=== PATIENT | male | born 1970 | race Two or more races ===

== ENCOUNTER 2016-06-12 12:05 | Inpatient (IN) | payer OTHER ==
[~2016-06-12] VITALS: Ht 172.7 cm; Wt 108.9 kg
[2016-06-12] MEDS ORDERED: IV NORMAL SALINE 1000ML BAG 1,000 ML IV ONE ×2 (13:15)
[2016-06-12 13:23] LABS: BASO # 0.1 x10^3/uL (0.0-0.2); BASO % 0 % (0-3); EOS % 0 % (0-3); HEMATOCRIT 44.3 % (39.0-53.0); HEMOGLOBIN 14.7 g/dL (13.0-17.5); LYMPH # 0.9 x10^3/uL (1.0-4.8); LYMPH % 5 % (24-48); MEAN CORPUSCULAR HEMOGLOBIN 30 pg (25-35); MEAN CORPUSCULAR HGB CONC 33 g/dL (31-37); MEAN CORPUSCULAR VOLUME 91 fL (79-100); MONO % 8 % (0-9); NEUT % 87 % (31-73); PLATELET COUNT 183 x10^3/uL (140-400); RED CELL DISTRIBUTION WIDTH 13.2 % (11.5-14.5); WHITE BLOOD COUNT 18.3 x10^3/uL (4.0-11.0)
--- NOTE | 2016-06-12 13:28 | PHYS DOC ---
Past Medical History Past Medical History: Diabetes-Type II, High Cholesterol, Hypertension, Other Additional Past Medical Histor: GOUT Past Surgical History: No Surgical History Alcohol Use: Occasionally Drug Use: None Adult General Chief Complaint Chief Complaint: SYNCOPE HPI HPI 45-year-old male presenting to the emergency department today after having hematuria with lightheadedness and generalized weakness. He also had a syncopal episode yesterday. He denies any recent traumatic injury. He describes suprapubic pain that is 3 out of 10 nonradiating sharp and worse with urination. Otherwise he denies chest pain shortness of breath. He was transferred here from an urgent care clinic. Review of systems is negative for chest pain nausea vomiting fevers or chills. Positive for syncope and dysuria. All other review of systems is negative unless otherwise noted in history of present illness. Review of Systems Review of Systems SEE ABOVE. Current Medications Current Medications Current Medications Medications (Trade) Dose Ordered Sig/Charu Start Time Stop Time Status Last Admin Dose Admin Sodium Chloride (Iv Sodium Chloride 0.9% 1000ml Bag) 1,000 ml @ 1,000 mls/hr 1X ONCE 06/12/16 13:15 06/12/16 14:14 DC 06/12/16 14:46 1,000 MLS/HR Allergies Allergies Allergies Coded Allergies Type Severity Reaction Last Updated Verified No Known Drug Allergies 06/12/16 No Physical Exam Physical Exam Constitutional: Well developed, well nourished, no acute distress, non-toxic appearance. HENT: Normocephalic, atraumatic, bilateral external ears normal, oropharynx moist, no oral exudates, nose normal. [] Eyes: PERRLA, EOMI, conjunctiva normal, no discharge. Neck: Normal range of motion, no tenderness, supple, no stridor. [] Cardiovascular: Tachycardic rate with a regular rhythm. No murmur present. Lungs & Thorax: Bilateral breath sounds clear to auscultation [] Abdomen: Soft and then only tender in the suprapubic region. Negative McBurney' s point. Negative Lorenzana sign. No rebound tenderness or guarding is present. Skin: Warm, dry, no erythema, no rash. [] Back: No tenderness, no CVA tenderness. Extremities: No tenderness, no cyanosis, no clubbing, ROM intact, no edema. [] Neurologic: Alert and oriented X 3, normal motor function, normal sensory function, no focal deficits noted. Psychologic: Affect normal, judgement normal, mood normal. [] Current Patient Data Vital Signs Vital Signs Date Time Temp Pulse Resp B/P Pulse Ox O2 Delivery O2 Flow Rate FiO2 06/12/16 13:30 96 18 96/67 98 Room Air 06/12/16 12:50 99.8 99.8 Lab Values Laboratory Tests Test 06/12/16 13:15 White Blood Count 18.3x10^3/uL (4.0-11.0) H Red Blood Count 4.90x10^6/uL (4.30-5.70) Hemoglobin 14.7g/dL (13.0-17.5) Hematocrit 44.3% (39.0-53.0) Mean Corpuscular Volume 91fL (79-100) Mean Corpuscular Hemoglobin 30pg (25-35) Mean Corpuscular Hemoglobin Concent 33g/dL (31-37) Red Cell Distribution Width 13.2% (11.5-14.5) Platelet Count 183x10^3/uL (140-400) Neutrophils (%) (Auto) 87% (31-73) H Lymphocytes (%) (Auto) 5% (24-48) L Monocytes (%) (Auto) 8% (0-9) Eosinophils (%) (Auto) 0% (0-3) Basophils (%) (Auto) 0% (0-3) Neutrophils # (Auto) 15.8x10^3uL (1.8-7.7) H Lymphocytes # (Auto) 0.9x10^3/uL (1.0-4.8) L Monocytes # (Auto) 1.5x10^3/uL (0.0-1.1) H Eosinophils # (Auto) 0.1x10^3/uL (0.0-0.7) Basophils # (Auto) 0.1x10^3/uL (0.0-0.2) Platelet Estimate Pending Urine Color [place] Urine Clarity Turbid Urine pH 6.0 Urine Specific [place] 1.020 Urine Protein >=300mg/dL (NEG-TRACE) Urine Glucose (UA) Negativemg/dL (NEG) Urine Ketones (Stick) Tracemg/dL (NEG) Urine Blood Large (NEG) Urine Nitrite Negative (NEG) Urine Bilirubin Small (NEG) Urine Urobilinogen Dipstick 2.0mg/dL (0.2 mg/dL) Urine Leukocyte Esterase Large (NEG) Urine RBC 3-5/HPF (0-2) Urine WBC Tntc/HPF (0-4) Urine Bacteria Moderate/HPF (0-FEW) Sodium Level 128mmol/L (136-145) L Potassium Level 3.9mmol/L (3.5-5.1) Chloride Level 91mmol/L (98-107) L Carbon Dioxide Level 27mmol/L (21-32) Anion Gap 10 (6-14) Blood Urea Nitrogen 15mg/dL (8-26) Creatinine 1.5mg/dL (0.7-1.3) H Estimated GFR (Cockcroft-Gault) 50.2 Glucose Level 293mg/dL (70-99) H Lactic Acid Level 2.0mmol/L (0.4-2.0) Calcium Level 9.3mg/dL (8.5-10.1) Total Bilirubin 1.5mg/dL (0.2-1.0) H Direct Bilirubin 0.5mg/dL (0.0-0.2) H Aspartate Amino Transferase (AST) 63U/L (15-37) H Alanine Aminotransferase (ALT) 68U/L (16-63) H Alkaline Phosphatase 69U/L (46-116) Troponin I Quantitative < 0.017ng/mL (0.000-0.055) QA-Osc-L-Type Natriuretic Peptide 175pg/mL (0-124) H Total Protein 7.4g/dL (6.4-8.2) Albumin 3.4g/dL (3.4-5.0) Lipase 140U/L (73-393) Laboratory Tests 06/12/16 13:15 Laboratory Tests 06/12/16 13:15 EKG EKG [] EKG shows sinus rhythm with a tachycardic rate. [place] is within normal limits. Intervals normal. ST segments congruent. Radiology/Procedures Radiology/Procedures [] Chest x-ray shows no obvious infiltrate or pneumothorax present. Course & Med Decision Making Course & Med Decision Making Pertinent Labs and Imaging studies reviewed. (See chart for details) [] 45-year-old male presenting to the emergency department today after being transferred from urgent care for tachycardia. On evaluation the patient was tachycardic and with a low-grade temperature. Otherwise saturating 93% on room air. Physical exam showed mild tenderness of the suprapubic region without rebound tenderness or guarding. Patient was given IV fluids after IV was obtained. Blood work was obtained showed leukocytosis. Chest x-ray unremarkable. Urinalysis suggestive of hemorrhagic cystitis. Given the patient' s tachycardia mildly low oxygen saturation and signs of systemic illness the patient was admitted to our hospital for IV antibiotics and IV fluid administration , further workup evaluation and care. Dragon Disclaimer Dragon Disclaimer This electronic medical record was generated, in whole or in part, using a voice recognition dictation system. Departure Departure Impression: Primary Impression: Dysuria Additional Impression: Tachycardia Disposition: ADMITTED INPATIENT Admitting Physician: Rachell Galindo Condition: STABLE Referrals: RACHELL GALINDO MD (PCP) Problem Qualifiers KVNG OAKLEY MD Jun 12, 2016 13:28
[2016-06-12 13:33] LABS: BILIRUBIN,URINE SMALL (NEG); GLUCOSE,URINE NEGATIVE (NEG); NITRITE,URINE NEGATIVE (NEG); PROTEIN,URINE >=300 mg/dL (NEG-TRACE)
[2016-06-12 13:38] LABS: CALCIUM 9.3 mg/dL (8.5-10.1); CREATININE 1.5 mg/dL (0.7-1.3); GFR 50.2; POTASSIUM 3.9 mmol/L (3.5-5.1)
--- NOTE | 2016-06-12 13:41 | RAD ---
Portable chest, 06/12/2016: History: Lightheadedness The heart size and pulmonary vascularity are normal. No pulmonary infiltrates are seen. There is no evidence of pleural fluid. IMPRESSION: No acute cardiopulmonary abnormality is detected.
[2016-06-12 13:51] LABS: ALBUMIN 3.4 g/dL (3.4-5.0); DIRECT BILIRUBIN 0.5 mg/dL (0.0-0.2); TOTAL BILIRUBIN 1.5 mg/dL (0.2-1.0); TOTAL PROTEIN 7.4 g/dL (6.4-8.2)
--- NOTE | 2016-06-12 13:56 | EKG ---
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
[2016-06-12 14:07] LABS: BACTERIA,URINE MODERATE /HPF (0-FEW); WBC,URINE TNTC /HPF (0-4)
[2016-06-12] MEDS ORDERED: CEFTRIAXONE 1GM IVPB FOR OMNI 50 ML IV ONE (15:15)
[2016-06-12] MEDS ORDERED: MORPHINE SULFATE 2 MG/ML DISP.SYRIN. IV PRN (15:15)
[2016-06-12] MEDS ORDERED: ONDANSETRON PF 4 MG/2 ML VIAL. IV PRN (15:15)
[2016-06-12] MEDS: IV NORMAL SALINE 1000ML BAG 1,000 ML IV SCH ×2 (16:09→23:05)
[2016-06-12 16:20] VITALS: BP 129/81
[2016-06-12 17:11] LABS: PLT ESTIMATE ADEQUATE (ADEQUATE)
[2016-06-12 19:00] VITALS: BP 100/62
[2016-06-12] MEDS ORDERED: DEXTROSE 50% 25 GM / 50ML DISP.SYRIN. IV PRN (19:00)
[2016-06-12 23:00] VITALS: BP 103/57
[2016-06-13 03:30] VITALS: BP 110/64
[2016-06-13 04:26] LABS: BASO % 0 % (0-3); EOS % 0 % (0-3); HEMATOCRIT 41.5 % (39.0-53.0); HEMOGLOBIN 13.2 g/dL (13.0-17.5); LYMPH % 4 % (24-48); MEAN CORPUSCULAR HEMOGLOBIN 30 pg (25-35); MEAN CORPUSCULAR HGB CONC 32 g/dL (31-37); MEAN CORPUSCULAR VOLUME 93 fL (79-100); MONO % 8 % (0-9); NEUT % 88 % (31-73); PLATELET COUNT 135 x10^3/uL (140-400); RED BLOOD COUNT 4.46 x10^6/uL (4.30-5.70); RED CELL DISTRIBUTION WIDTH 13.3 % (11.5-14.5)
[2016-06-13 04:36] LABS: CALCIUM 8.8 mg/dL (8.5-10.1); CREATININE 1.7 mg/dL (0.7-1.3); GFR 43.4; POTASSIUM 3.4 mmol/L (3.5-5.1)
[2016-06-13] MEDS: IV NORMAL SALINE 1000ML BAG 1,000 ML IV SCH (05:19)
[2016-06-13 07:00] VITALS: BP 104/61
[2016-06-13] MEDS: INSULIN ASPART 300 UNITS/3 ML INSULN.PEN SQ SCH ×3 (08:00→17:00)
[2016-06-13] MEDS ORDERED: IV NORMAL SALINE 1000ML BAG 1,000 ML IV SCH ×2 (08:31→13:00)
--- NOTE | 2016-06-13 08:44 | PDOC ---
PROGRESS NOTES Subjective Subjective Patient reports he feels "a little better". Feels able to urinate without difficulty. Objective Objective Vital Signs Date Time Temp Pulse Resp B/P Pulse Ox O2 Delivery O2 Flow Rate FiO2 06/13/16 03:30 98.5 98 20 110/64 96 Room Air 98.5 Intake and Output 06/13/16 07:00 Intake Total 4900 ml Output Total 1700 ml Balance 3200 ml Intake Oral 2900 ml IV Total 2000 ml Output Urine Total 1700 ml Physical Exam Abdomen: Normal bowel sounds, Soft, No tenderness Heart: Regular rate Extremities: No edema General: Alert, Oriented X3, No acute distress Lungs: Clear to auscultation Assessment Assessment Problems Medical Problems: (1) Dysuria Status: Acute (2) Tachycardia Status: Acute Plan Plan of Care 1. UTI with sepsis - Patient had elevated WBC's, tachycardia and mild hypotension at admission, some chills but no fever. Preliminary blood culture is positive for gram negative rods. Continue Rocephin daily and await final culture results. 2. PHIL - some mild dehydration present at admission. Continue IVF until this evening, patient is taking po well now. Replace K+ orally. 3. DM2 - glucose only mildly elevated now. No home med list on chart, will continue SS insulin and resume home meds as needed. 4. HTN - meds on hold as BP was mildly low. Now normotensive. Resume home meds when needed. Comment Review of Relevant I have reviewed the following items zaynab (where applicable) has been applied. Labs Laboratory Tests Test 06/12/16 13:15 06/12/16 17:56 06/12/16 21:01 06/13/16 03:48 White Blood Count 18.3x10^3/uL (4.0-11.0) 22.0x10^3/uL (4.0-11.0) Red Blood Count 4.90x10^6/uL (4.30-5.70) 4.46x10^6/uL (4.30-5.70) Hemoglobin 14.7g/dL (13.0-17.5) 13.2g/dL (13.0-17.5) Hematocrit 44.3% (39.0-53.0) 41.5% (39.0-53.0) Mean Corpuscular Volume 91fL (79-100) 93fL (79-100) Mean Corpuscular Hemoglobin 30pg (25-35) 30pg (25-35) Mean Corpuscular Hemoglobin Concent 33g/dL (31-37) 32g/dL (31-37) Red Cell Distribution Width 13.2% (11.5-14.5) 13.3% (11.5-14.5) Platelet Count 183x10^3/uL (140-400) 135x10^3/uL (140-400) Neutrophils (%) (Auto) 87% (31-73) 88% (31-73) Lymphocytes (%) (Auto) 5% (24-48) 4% (24-48) Monocytes (%) (Auto) 8% (0-9) 8% (0-9) Eosinophils (%) (Auto) 0% (0-3) 0% (0-3) Basophils (%) (Auto) 0% (0-3) 0% (0-3) Neutrophils # (Auto) 15.8x10^3uL (1.8-7.7) 19.3x10^3uL (1.8-7.7) Lymphocytes # (Auto) 0.9x10^3/uL (1.0-4.8) 1.0x10^3/uL (1.0-4.8) Monocytes # (Auto) 1.5x10^3/uL (0.0-1.1) 1.7x10^3/uL (0.0-1.1) Eosinophils # (Auto) 0.1x10^3/uL (0.0-0.7) 0.0x10^3/uL (0.0-0.7) Basophils # (Auto) 0.1x10^3/uL (0.0-0.2) 0.0x10^3/uL (0.0-0.2) Segmented Neutrophils % 78% (35-66) Band Neutrophils % 7% (0-9) Lymphocytes % 7% (24-48) Monocytes % 8% (0-10) Platelet Estimate Adequate (ADEQUATE) Urine Color [place] Urine Clarity Turbid Urine pH 6.0 Urine Specific [place] 1.020 Urine Protein >=300mg/dL (NEG-TRACE) Urine Glucose (UA) Negativemg/dL (NEG) Urine Ketones (Stick) Tracemg/dL (NEG) Urine Blood Large (NEG) Urine Nitrite Negative (NEG) Urine Bilirubin Small (NEG) Urine Urobilinogen Dipstick 2.0mg/dL (0.2 mg/dL) Urine Leukocyte Esterase Large (NEG) Urine RBC 3-5/HPF (0-2) Urine WBC Tntc/HPF (0-4) Urine Bacteria Moderate/HPF (0-FEW) Sodium Level 128mmol/L (136-145) 132mmol/L (136-145) Potassium Level 3.9mmol/L (3.5-5.1) 3.4mmol/L (3.5-5.1) Chloride Level 91mmol/L (98-107) 98mmol/L (98-107) Carbon Dioxide Level 27mmol/L (21-32) 23mmol/L (21-32) Anion Gap 10 (6-14) 11 (6-14) Blood Urea Nitrogen 15mg/dL (8-26) 15mg/dL (8-26) Creatinine 1.5mg/dL (0.7-1.3) 1.7mg/dL (0.7-1.3) Estimated GFR (Cockcroft-Gault) 50.2 43.4 Glucose Level 293mg/dL (70-99) 185mg/dL (70-99) Lactic Acid Level 2.0mmol/L (0.4-2.0) Calcium Level 9.3mg/dL (8.5-10.1) 8.8mg/dL (8.5-10.1) Total Bilirubin 1.5mg/dL (0.2-1.0) Direct Bilirubin 0.5mg/dL (0.0-0.2) Aspartate Amino Transf (AST/SGOT) 63U/L (15-37) Alanine Aminotransferase (ALT/SGPT) 68U/L (16-63) Alkaline Phosphatase 69U/L (46-116) Troponin I Quantitative < 0.017ng/mL (0.000-0.055) JI-Xkq-G-Type Natriuretic Peptide 175pg/mL (0-124) Total Protein 7.4g/dL (6.4-8.2) Albumin 3.4g/dL (3.4-5.0) Lipase 140U/L (73-393) Glucose (Fingerstick) 210mg/dL (70-99) 147mg/dL (70-99) Test 06/13/16 07:17 Glucose (Fingerstick) 139mg/dL (70-99) Laboratory Tests Test 06/12/16 13:15 06/12/16 17:56 06/12/16 21:01 06/13/16 03:48 White Blood Count 18.3x10^3/uL (4.0-11.0) 22.0x10^3/uL (4.0-11.0) Red Blood Count 4.90x10^6/uL (4.30-5.70) 4.46x10^6/uL (4.30-5.70) Hemoglobin 14.7g/dL (13.0-17.5) 13.2g/dL (13.0-17.5) Hematocrit 44.3% (39.0-53.0) 41.5% (39.0-53.0) Mean Corpuscular Volume 91fL (79-100) 93fL (79-100) Mean Corpuscular Hemoglobin 30pg (25-35) 30pg (25-35) Mean Corpuscular Hemoglobin Concent 33g/dL (31-37) 32g/dL (31-37) Red Cell Distribution Width 13.2% (11.5-14.5) 13.3% (11.5-14.5) Platelet Count 183x10^3/uL (140-400) 135x10^3/uL (140-400) Neutrophils (%) (Auto) 87% (31-73) 88% (31-73) Lymphocytes (%) (Auto) 5% (24-48) 4% (24-48) Monocytes (%) (Auto) 8% (0-9) 8% (0-9) Eosinophils (%) (Auto) 0% (0-3) 0% (0-3) Basophils (%) (Auto) 0% (0-3) 0% (0-3) Neutrophils # (Auto) 15.8x10^3uL (1.8-7.7) 19.3x10^3uL (1.8-7.7) Lymphocytes # (Auto) 0.9x10^3/uL (1.0-4.8) 1.0x10^3/uL (1.0-4.8) Monocytes # (Auto) 1.5x10^3/uL (0.0-1.1) 1.7x10^3/uL (0.0-1.1) Eosinophils # (Auto) 0.1x10^3/uL (0.0-0.7) 0.0x10^3/uL (0.0-0.7) Basophils # (Auto) 0.1x10^3/uL (0.0-0.2) 0.0x10^3/uL (0.0-0.2) Segmented Neutrophils % 78% (35-66) Band Neutrophils % 7% (0-9) Lymphocytes % 7% (24-48) Monocytes % 8% (0-10) Platelet Estimate Adequate (ADEQUATE) Urine Color [place] Urine Clarity Turbid Urine pH 6.0 Urine Specific [place] 1.020 Urine Protein >=300mg/dL (NEG-TRACE) Urine Glucose (UA) Negativemg/dL (NEG) Urine Ketones (Stick) Tracemg/dL (NEG) Urine Blood Large (NEG) Urine Nitrite Negative (NEG) Urine Bilirubin Small (NEG) Urine Urobilinogen Dipstick 2.0mg/dL (0.2 mg/dL) Urine Leukocyte Esterase Large (NEG) Urine RBC 3-5/HPF (0-2) Urine WBC Tntc/HPF (0-4) Urine Bacteria Moderate/HPF (0-FEW) Sodium Level 128mmol/L (136-145) 132mmol/L (136-145) Potassium Level 3.9mmol/L (3.5-5.1) 3.4mmol/L (3.5-5.1) Chloride Level 91mmol/L (98-107) 98mmol/L (98-107) Carbon Dioxide Level 27mmol/L (21-32) 23mmol/L (21-32) Anion Gap 10 (6-14) 11 (6-14) Blood Urea Nitrogen 15mg/dL (8-26) 15mg/dL (8-26) Creatinine 1.5mg/dL (0.7-1.3) 1.7mg/dL (0.7-1.3) Estimated GFR (Cockcroft-Gault) 50.2 43.4 Glucose Level 293mg/dL (70-99) 185mg/dL (70-99) Lactic Acid Level 2.0mmol/L (0.4-2.0) Calcium Level 9.3mg/dL (8.5-10.1) 8.8mg/dL (8.5-10.1) Total Bilirubin 1.5mg/dL (0.2-1.0) Direct Bilirubin 0.5mg/dL (0.0-0.2) Aspartate Amino Transf (AST/SGOT) 63U/L (15-37) Alanine Aminotransferase (ALT/SGPT) 68U/L (16-63) Alkaline Phosphatase 69U/L (46-116) Troponin I Quantitative < 0.017ng/mL (0.000-0.055) QD-Gsn-S-Type Natriuretic Peptide 175pg/mL (0-124) Total Protein 7.4g/dL (6.4-8.2) Albumin 3.4g/dL (3.4-5.0) Lipase 140U/L (73-393) Glucose (Fingerstick) 210mg/dL (70-99) 147mg/dL (70-99) Test 06/13/16 07:17 Glucose (Fingerstick) 139mg/dL (70-99) Microbiology 06/12/16 Blood Culture - Final, Complete Medications Current Medications Sodium Chloride 1,000 ml @ 1,000 mls/hr 1X ONCE IV Last administered on 13:32; Start 06/12/16 at 13:15; Stop 06/12/16 at 14:14; Status DC Sodium Chloride 1,000 ml @ 1,000 mls/hr 1X ONCE IV Last administered on 14:46; Start 06/12/16 at 13:15; Stop 06/12/16 at 14:14; Status DC Ceftriaxone Sodium (Rocephin 1gm Ivpb For Omni) 50 ml @ 100 mls/hr 1X ONCE IV Last administered on 06/12/16 16:08; Start 06/12/16 at 15:15; Stop 06/12/16 at 15:44; Status DC Ondansetron HCl (Zofran) 4 mg PRN Q8HRS PRN IV NAUSEA/VOMITING; Start 06/12/16 at 15:15; Stop 06/13/16 at 15:14 Morphine Sulfate 2 mg 2 mg PRN Q2HR PRN IV PAIN; Start 06/12/16 at 15:15; Stop 06/13/16 at 15:14 Sodium Chloride (Iv Sodium Chloride 0.9% 1000ml Bag) 1,000 ml @ 125 mls/hr Q8H IV Last administered on 06/13/16t 05:19; Start 06/12/16 at 15:05; Stop 06/13/16 at 08:34; Status DC Insulin Aspart (Novolog) 0-7 UNITS TIDWMEALS SQ ; Start 06/13/16 at 08:00 Dextrose 12.5 gm 12.5 gm PRN Q15MIN PRN IV SEE COMMENTS; Start 06/12/16 at 19:00 Ceftriaxone Sodium 1 gm/ Sodium Chloride 50 ml @ 100 mls/hr Q24H IV ; Start 06/13/16 at 16:00 Sodium Chloride (Iv Sodium Chloride 0.9% 1000ml Bag) 1,000 ml @ 100 mls/hr Q10H IV ; Start 06/13/16 at 08:31; Stop 06/13/16 at 08:37; Status DC Potassium Chloride (Klor-Con) 10 meq BID94 PO ; Start 06/13/16 at 09:00 Vitals/I & O Vital Sign - Last 24 Hours 06/12/16 06/12/16 06/12/16 06/12/16 12:50 13:30 16:05 16:20 Temp 99.8 98.0 99.8 98.0 Pulse 114 96 98 92 Resp 20 18 16 22 B/P 99/63 96/67 103/65 129/81 Pulse Ox 93 98 95 96 O2 Delivery Room Air Room Air Room Air Room Air 06/12/16 06/12/16 06/12/16 06/12/16 17:56 19:00 20:00 20:34 Temp 99.8 99.8 Pulse 90 Resp 20 B/P 100/62 Pulse Ox 93 O2 Delivery Room Air Room Air Room Air Room Air 06/12/16 06/13/16 23:00 03:30 Temp 98.3 98.5 98.3 98.5 Pulse 114 98 Resp 20 20 B/P 103/57 110/64 Pulse Ox 93 96 O2 Delivery Room Air Room Air Intake and Output 06/12/16 06/12/16 06/13/16 15:00 23:00 07:00 Intake Total 1000 ml 1400 ml 2500 ml Output Total 700 ml 1000 ml Balance 1000 ml 700 ml 1500 ml VIDHYA KNIGHT MD Jun 13, 2016 08:44
[2016-06-13] MEDS ORDERED: ALLO300T PO (09:32)
[2016-06-13] MEDS ORDERED: HYDR25TA9 PO (09:35)
[2016-06-13] MEDS ORDERED: LISI40TA PO (09:35)
[2016-06-13] MEDS ORDERED: VENL150T PO (09:35)
[2016-06-13] MEDS ORDERED: PIOG15TA2 PO (09:35)
[2016-06-13] MEDS ORDERED: ATOR20TA58 PO (09:35)
[2016-06-13] MEDS ORDERED: METF10002 PO (09:35)
[2016-06-13] MEDS ORDERED: GLIP10TA20 PO (09:35)
[2016-06-13] MEDS: POTASSIUM CHLORIDE 10 MEQ TABLET.ER. PO SCH ×2 (09:38→16:14)
[2016-06-13 10:58] VITALS: BP 114/76
[2016-06-13] MEDS: VENLAFAXINE 50 MG TABLET. PO SCH ×3 (11:30→20:15)
[2016-06-13] MEDS: ACETAMINOPHEN 500 MG TABLET PO PRN ×2 (13:09→20:15)
[2016-06-13 15:27] VITALS: BP 121/79
[2016-06-13] MEDS ORDERED: CEFTRIAXONE SODIUM 1 GM in IV NORMAL SALINE 50ML 50 ML IV SCH (16:00)
--- NOTE | 2016-06-13 17:36 | HP ---
ADMIT DATE: 06/12/2016 CHIEF COMPLAINT: Dysuria and malaise. HISTORY OF PRESENT ILLNESS: The patient is a 45-year-old male who was seen in our office on the day of admission with the above complaint. He reported a several day history of increasing dysuria and some suprapubic pain. He had also seen some blood in his urine. The patient experienced an episode of syncope at home on the day prior to admission. His found him on the floor, but he quickly regained consciousness. He was brought to the Emergency Room for evaluation then, but after waiting several hours to be seen, he was feeling better, so he went home without further evaluation. When seen in our office on the day of admission, he was profusely diaphoretic and tachycardic and admitted to some dizziness. UA showed a significant amount of WBCs. He was sent to the Emergency Room for further evaluation and admitted from there. PAST MEDICAL HISTORY: Diabetes mellitus type 2, hypertension, hyperlipidemia, gout, depression with anxiety. PAST SURGICAL HISTORY: None noted on the chart. ALLERGIES: The patient has no known drug allergies. HOME MEDICATIONS: An accurate list is not presently available. The patient is on several oral medications for his diabetes, but does not take insulin. FAMILY HISTORY: Noncontributory. SOCIAL HISTORY: The patient is . 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 He does not smoke cigarettes. He does not drink alcohol to excess. REVIEW OF SYSTEMS: The patient did notice some subjective fever and chills at home. He denies chest pain or palpitations. He denies cough or shortness of breath. He denies abdominal pain, nausea or vomiting. He had some minor constipation, but this has resolved. He denies lower extremity edema. He has been taking his medications daily. He did receive a flu shot last fall. PHYSICAL EXAMINATION: GENERAL: The patient is alert and 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, resting comfortably in bed in no acute distress. HEENT: PERRL, EOMI, sclerae clear. Oropharynx: Mucous membranes moist. NECK: Supple, without lymphadenopathy. CHEST: Clear to auscultation with normal respiratory effort and good breath sounds throughout. CARDIOVASCULAR: Regular rhythm without murmur. Tachycardia has resolved. ABDOMEN: Soft, nontender, normoactive bowel sounds are present. EXTREMITIES: Without edema. ASSESSMENT AND PLAN: 1. Urinary tract infection with sepsis. The patient had a significantly elevated white blood cell count at admission of 18.3 with 7 bands. His has tachycardia and hypotension have resolved with IV fluids. He has been started on Rocephin daily. Preliminary blood culture is already positive for gram-negative rods. We will continue the Rocephin and await final culture results. 2. Acute kidney injury. The patient had some mild dehydration at admission and a creatinine elevated to 1.5. His lab is stable, but not significantly improved today. We will continue the IV fluids until this evening. He is now taking oral fluids with a good appetite and is encouraged to continue this. Potassium is mildly low and we will replace this orally. 3. Diabetes mellitus type 2. The patient's glucose is only mildly elevated at present. We will continue sliding scale insulin and resume his home medications as needed. 4. Hypertension. Home medications are on hold due to his mildly low blood pressure. We will resume his home medications when needed. VIDHYA KNIGHT MD DR: HEAVEN/amrik JOB#: [id number] / [id number] YOSELYN
--- NOTE | 2016-06-13 20:29 | ACF ---
Admission Forms Criteria URINARY COMPLICATIONS Clinical Indications for Inpatient Care (Place 'X' for any and all applicable criteria): Ongoing inpatient care may be indicated for urinary complications with ANY ONE of the following: [X]I. Urinary tract infection requiring inpatient care as indicated by ANY ONE of the following(8)(19)(20): [ ]a) Severe symptoms (eg, high fever, severe pain) [ ]b) Vomiting or dehydration requiring ongoing inpatient care [X]c) IV antibiotic needs that cannot be managed at lower level of care [ ]d) Hemodynamic instability [ ]e) Obstruction of collecting system by stone or tumor [ ]II. Urinary retention requiring drainage or surgery (3)(4)(5)(17)(18) [ ]III. Renal failure (Use Renal Failure Criteria for further information.) [ ]IV. Oliguria(30) [ ]V. Post obstructive diuresis requiring close monitoring of urine output and intravenous compensation for excessive fluid losses(33) Extended stay beyond goal length of stay for primary condition may be needed until ALL of the following are present(3)(4)(5)(8): [ ]a) Renal function (creatinine) at baseline, or daily decreases in creatinine consistent with renal function return [ ]b) Voiding adequately or with urinary catheter or percutaneous suprapubic tube and management regimen in place that is performable at lower level of care. [ ]c) Urine output adequate [ ]d) Fever absent or resolving [ ]e) Infection absent or treatable at next level of care The original [employer] content created by [employer] has been revised. The portions of the content which have been revised are identified through the use of italic text or in bold, and [facility] has neither reviewed nor approved the modified material. All other unmodified content is copyright [facility] Please see references footnoted in the original [facility] edition 2016 Admission Criteria Met?: ED Lazaro Jun 13, 2016 20:29
[2016-06-13 20:35] VITALS: BP 156/100
[2016-06-13 21:40] LABS: BASO # 0.1 x10^3/uL (0.0-0.2); BASO % 0 % (0-3); EOS % 0 % (0-3); HEMATOCRIT 41.1 % (39.0-53.0); HEMOGLOBIN 13.5 g/dL (13.0-17.5); LYMPH # 0.8 x10^3/uL (1.0-4.8); LYMPH % 5 % (24-48); MEAN CORPUSCULAR HEMOGLOBIN 30 pg (25-35); MEAN CORPUSCULAR HGB CONC 33 g/dL (31-37); MEAN CORPUSCULAR VOLUME 90 fL (79-100); MONO % 5 % (0-9); NEUT % 90 % (31-73); PLATELET COUNT 129 x10^3/uL (140-400); RED BLOOD COUNT 4.56 x10^6/uL (4.30-5.70); RED CELL DISTRIBUTION WIDTH 13.4 % (11.5-14.5); WHITE BLOOD COUNT 18.4 x10^3/uL (4.0-11.0)
[2016-06-13 21:51] LABS: CALCIUM 8.4 mg/dL (8.5-10.1); CREATININE 1.3 mg/dL (0.7-1.3); GFR 59.2; POTASSIUM 3.3 mmol/L (3.5-5.1)
[2016-06-13 21:56] LABS: ALBUMIN 2.5 g/dL (3.4-5.0); ALBUMIN/GLOBULIN RATIO 0.6 (1.0-1.7); TOTAL BILIRUBIN 0.6 mg/dL (0.2-1.0); TOTAL PROTEIN 6.6 g/dL (6.4-8.2)
[2016-06-13] MEDS: MEROPENEM 500 MG in IV NORMAL SALINE 50ML 50 ML IV SCH (21:57)
[2016-06-13 22:08] LABS: PLT ESTIMATE DECREASED (ADEQUATE); TOXIC GRANULATION SLIGHT; TOXIC VACUOLATION SLIGHT
[2016-06-13 23:14] VITALS: BP 156/105
[2016-06-14] VITALS (7 sets, daily range): BP systolic 128–150; BP diastolic 85–107
[2016-06-14] MEDS: ACETAMINOPHEN 500 MG TABLET PO PRN ×3 (03:46→17:24)
[2016-06-14] MEDS: MEROPENEM 500 MG in IV NORMAL SALINE 50ML 50 ML IV SCH ×3 (04:51→18:00)
[2016-06-14 05:30] LABS: HEMATOCRIT 39.9 % (39.0-53.0); HEMOGLOBIN 13.4 g/dL (13.0-17.5); RED BLOOD COUNT 4.52 x10^6/uL (4.30-5.70); RED CELL DISTRIBUTION WIDTH 13.4 % (11.5-14.5); WHITE BLOOD COUNT 16.3 x10^3/uL (4.0-11.0)
[2016-06-14 05:33] LABS: CALCIUM 8.2 mg/dL (8.5-10.1); CREATININE 1.2 mg/dL (0.7-1.3); GFR 64.9; POTASSIUM 3.1 mmol/L (3.5-5.1)
--- NOTE | 2016-06-14 08:03 | PDOC ---
PROGRESS NOTES Subjective Subjective Patient reports chills have resolved this morning. Objective Objective Vital Signs Date Time Temp Pulse Resp B/P Pulse Ox O2 Delivery O2 Flow Rate FiO2 06/14/16 07:51 99.2 72 18 136/91 94 Room Air 0.1 99.2 Intake and Output 06/14/16 07:00 Intake Total 3930 ml Output Total 2600 ml Balance 1330 ml Intake Oral 3930 ml Output Urine Total 2600 ml # Voids 1 Physical Exam Abdomen: Normal bowel sounds, Soft, No tenderness Heart: Regular rate Extremities: No edema General: Alert, Oriented X3, No acute distress Lungs: Clear to auscultation Assessment Assessment Problems Medical Problems: (1) Dysuria Status: Acute (2) Tachycardia Status: Acute Plan Plan of Care 1. Sepsis with UTI - patient's fever has persisted, ID was consulted last evening and patient is now on Meropenem. Await final blood and urine cultures. Tachycardia and hypotension have resolved and lactic acid WNL. 2. PHIL - renal function back to baseline with hydration. No further IVF needed, patient is taking po well. 3. DM2 - glucose elevated, resume home meds (continue to hold Metformin) and use SS as needed. 4. HTN - BP elevated now, resume Lisinopril. 5. hypokalemia - continue po replacement and follow lab. Comment Review of Relevant I have reviewed the following items [email or web address] (where applicable) has been applied. Labs Laboratory Tests Test 06/12/16 13:15 06/12/16 17:56 06/12/16 21:01 06/13/16 03:48 White Blood Count 18.3x10^3/uL (4.0-11.0) 22.0x10^3/uL (4.0-11.0) Red Blood Count 4.90x10^6/uL (4.30-5.70) 4.46x10^6/uL (4.30-5.70) Hemoglobin 14.7g/dL (13.0-17.5) 13.2g/dL (13.0-17.5) Hematocrit 44.3% (39.0-53.0) 41.5% (39.0-53.0) Mean Corpuscular Volume 91fL (79-100) 93fL (79-100) Mean Corpuscular Hemoglobin 30pg (25-35) 30pg (25-35) Mean Corpuscular Hemoglobin Concent 33g/dL (31-37) 32g/dL (31-37) Red Cell Distribution Width 13.2% (11.5-14.5) 13.3% (11.5-14.5) Platelet Count 183x10^3/uL (140-400) 135x10^3/uL (140-400) Neutrophils (%) (Auto) 87% (31-73) 88% (31-73) Lymphocytes (%) (Auto) 5% (24-48) 4% (24-48) Monocytes (%) (Auto) 8% (0-9) 8% (0-9) Eosinophils (%) (Auto) 0% (0-3) 0% (0-3) Basophils (%) (Auto) 0% (0-3) 0% (0-3) Neutrophils # (Auto) 15.8x10^3uL (1.8-7.7) 19.3x10^3uL (1.8-7.7) Lymphocytes # (Auto) 0.9x10^3/uL (1.0-4.8) 1.0x10^3/uL (1.0-4.8) Monocytes # (Auto) 1.5x10^3/uL (0.0-1.1) 1.7x10^3/uL (0.0-1.1) Eosinophils # (Auto) 0.1x10^3/uL (0.0-0.7) 0.0x10^3/uL (0.0-0.7) Basophils # (Auto) 0.1x10^3/uL (0.0-0.2) 0.0x10^3/uL (0.0-0.2) Segmented Neutrophils % 78% (35-66) Band Neutrophils % 7% (0-9) Lymphocytes % 7% (24-48) Monocytes % 8% (0-10) Platelet Estimate Adequate (ADEQUATE) Urine Color [place] Urine Clarity Turbid Urine pH 6.0 Urine Specific [place] 1.020 Urine Protein >=300mg/dL (NEG-TRACE) Urine Glucose (UA) Negativemg/dL (NEG) Urine Ketones (Stick) Tracemg/dL (NEG) Urine Blood Large (NEG) Urine Nitrite Negative (NEG) Urine Bilirubin Small (NEG) Urine Urobilinogen Dipstick 2.0mg/dL (0.2 mg/dL) Urine Leukocyte Esterase Large (NEG) Urine RBC 3-5/HPF (0-2) Urine WBC Tntc/HPF (0-4) Urine Bacteria Moderate/HPF (0-FEW) Sodium Level 128mmol/L (136-145) 132mmol/L (136-145) Potassium Level 3.9mmol/L (3.5-5.1) 3.4mmol/L (3.5-5.1) Chloride Level 91mmol/L (98-107) 98mmol/L (98-107) Carbon Dioxide Level 27mmol/L (21-32) 23mmol/L (21-32) Anion Gap 10 (6-14) 11 (6-14) Blood Urea Nitrogen 15mg/dL (8-26) 15mg/dL (8-26) Creatinine 1.5mg/dL (0.7-1.3) 1.7mg/dL (0.7-1.3) Estimated GFR (Cockcroft-Gault) 50.2 43.4 Glucose Level 293mg/dL (70-99) 185mg/dL (70-99) Lactic Acid Level 2.0mmol/L (0.4-2.0) Calcium Level 9.3mg/dL (8.5-10.1) 8.8mg/dL (8.5-10.1) Total Bilirubin 1.5mg/dL (0.2-1.0) Direct Bilirubin 0.5mg/dL (0.0-0.2) Aspartate Amino Transf (AST/SGOT) 63U/L (15-37) Alanine Aminotransferase (ALT/SGPT) 68U/L (16-63) Alkaline Phosphatase 69U/L (46-116) Troponin I Quantitative < 0.017ng/mL (0.000-0.055) DZ-Pdc-L-Type Natriuretic Peptide 175pg/mL (0-124) Total Protein 7.4g/dL (6.4-8.2) Albumin 3.4g/dL (3.4-5.0) Lipase 140U/L (73-393) Glucose (Fingerstick) 210mg/dL (70-99) 147mg/dL (70-99) Test 06/13/16 07:17 06/13/16 11:08 06/13/16 16:11 06/13/16 20:46 Glucose (Fingerstick) 139mg/dL (70-99) 188mg/dL (70-99) 171mg/dL (70-99) 192mg/dL (70-99) Test 06/13/16 21:28 06/14/16 05:05 06/14/16 07:12 White Blood Count 18.4x10^3/uL (4.0-11.0) 16.3x10^3/uL (4.0-11.0) Red Blood Count 4.56x10^6/uL (4.30-5.70) 4.52x10^6/uL (4.30-5.70) Hemoglobin 13.5g/dL (13.0-17.5) 13.4g/dL (13.0-17.5) Hematocrit 41.1% (39.0-53.0) 39.9% (39.0-53.0) Mean Corpuscular Volume 90fL (79-100) 88fL (79-100) Mean Corpuscular Hemoglobin 30pg (25-35) 30pg (25-35) Mean Corpuscular Hemoglobin Concent 33g/dL (31-37) 34g/dL (31-37) Red Cell Distribution Width 13.4% (11.5-14.5) 13.4% (11.5-14.5) Platelet Count 129x10^3/uL (140-400) 133x10^3/uL (140-400) Neutrophils (%) (Auto) 90% (31-73) Lymphocytes (%) (Auto) 5% (24-48) Monocytes (%) (Auto) 5% (0-9) Eosinophils (%) (Auto) 0% (0-3) Basophils (%) (Auto) 0% (0-3) Neutrophils # (Auto) 16.6x10^3uL (1.8-7.7) Lymphocytes # (Auto) 0.8x10^3/uL (1.0-4.8) Monocytes # (Auto) 0.9x10^3/uL (0.0-1.1) Eosinophils # (Auto) 0.0x10^3/uL (0.0-0.7) Basophils # (Auto) 0.1x10^3/uL (0.0-0.2) Segmented Neutrophils % 67% (35-66) Band Neutrophils % 22% (0-9) Lymphocytes % 8% (24-48) Monocytes % 3% (0-10) Toxic Granulation Slight Toxic Vacuolation Slight Platelet Estimate Decreased (ADEQUATE) Sodium Level 135mmol/L (136-145) 132mmol/L (136-145) Potassium Level 3.3mmol/L (3.5-5.1) 3.1mmol/L (3.5-5.1) Chloride Level 99mmol/L (98-107) 98mmol/L (98-107) Carbon Dioxide Level 23mmol/L (21-32) 25mmol/L (21-32) Anion Gap 13 (6-14) 9 (6-14) Blood Urea Nitrogen 15mg/dL (8-26) 13mg/dL (8-26) Creatinine 1.3mg/dL (0.7-1.3) 1.2mg/dL (0.7-1.3) Estimated GFR (Cockcroft-Gault) 59.2 64.9 BUN/Creatinine Ratio 12 (6-20) Glucose Level 245mg/dL (70-99) 228mg/dL (70-99) Lactic Acid Level 1.6mmol/L (0.4-2.0) Calcium Level 8.4mg/dL (8.5-10.1) 8.2mg/dL (8.5-10.1) Total Bilirubin 0.6mg/dL (0.2-1.0) Aspartate Amino Transf (AST/SGOT) 23U/L (15-37) Alanine Aminotransferase (ALT/SGPT) 41U/L (16-63) Alkaline Phosphatase 76U/L (46-116) Total Protein 6.6g/dL (6.4-8.2) Albumin 2.5g/dL (3.4-5.0) Albumin/Globulin Ratio 0.6 (1.0-1.7) Glucose (Fingerstick) 183mg/dL (70-99) Laboratory Tests Test 06/13/16 11:08 06/13/16 16:11 06/13/16 20:46 06/13/16 21:28 Glucose (Fingerstick) 188mg/dL (70-99) 171mg/dL (70-99) 192mg/dL (70-99) White Blood Count 18.4x10^3/uL (4.0-11.0) Red Blood Count 4.56x10^6/uL (4.30-5.70) Hemoglobin 13.5g/dL (13.0-17.5) Hematocrit 41.1% (39.0-53.0) Mean Corpuscular Volume 90fL (79-100) Mean Corpuscular Hemoglobin 30pg (25-35) Mean Corpuscular Hemoglobin Concent 33g/dL (31-37) Red Cell Distribution Width 13.4% (11.5-14.5) Platelet Count 129x10^3/uL (140-400) Neutrophils (%) (Auto) 90% (31-73) Lymphocytes (%) (Auto) 5% (24-48) Monocytes (%) (Auto) 5% (0-9) Eosinophils (%) (Auto) 0% (0-3) Basophils (%) (Auto) 0% (0-3) Neutrophils # (Auto) 16.6x10^3uL (1.8-7.7) Lymphocytes # (Auto) 0.8x10^3/uL (1.0-4.8) Monocytes # (Auto) 0.9x10^3/uL (0.0-1.1) Eosinophils # (Auto) 0.0x10^3/uL (0.0-0.7) Basophils # (Auto) 0.1x10^3/uL (0.0-0.2) Segmented Neutrophils % 67% (35-66) Band Neutrophils % 22% (0-9) Lymphocytes % 8% (24-48) Monocytes % 3% (0-10) Toxic Granulation Slight Toxic Vacuolation Slight Platelet Estimate Decreased (ADEQUATE) Sodium Level 135mmol/L (136-145) Potassium Level 3.3mmol/L (3.5-5.1) Chloride Level 99mmol/L (98-107) Carbon Dioxide Level 23mmol/L (21-32) Anion Gap 13 (6-14) Blood Urea Nitrogen 15mg/dL (8-26) Creatinine 1.3mg/dL (0.7-1.3) Estimated GFR (Cockcroft-Gault) 59.2 BUN/Creatinine Ratio 12 (6-20) Glucose Level 245mg/dL (70-99) Lactic Acid Level 1.6mmol/L (0.4-2.0) Calcium Level 8.4mg/dL (8.5-10.1) Total Bilirubin 0.6mg/dL (0.2-1.0) Aspartate Amino Transf (AST/SGOT) 23U/L (15-37) Alanine Aminotransferase (ALT/SGPT) 41U/L (16-63) Alkaline Phosphatase 76U/L (46-116) Total Protein 6.6g/dL (6.4-8.2) Albumin 2.5g/dL (3.4-5.0) Albumin/Globulin Ratio 0.6 (1.0-1.7) Test 06/14/16 05:05 06/14/16 07:12 White Blood Count 16.3x10^3/uL (4.0-11.0) Red Blood Count 4.52x10^6/uL (4.30-5.70) Hemoglobin 13.4g/dL (13.0-17.5) Hematocrit 39.9% (39.0-53.0) Mean Corpuscular Volume 88fL (79-100) Mean Corpuscular Hemoglobin 30pg (25-35) Mean Corpuscular Hemoglobin Concent 34g/dL (31-37) Red Cell Distribution Width 13.4% (11.5-14.5) Platelet Count 133x10^3/uL (140-400) Sodium Level 132mmol/L (136-145) Potassium Level 3.1mmol/L (3.5-5.1) Chloride Level 98mmol/L (98-107) Carbon Dioxide Level 25mmol/L (21-32) Anion Gap 9 (6-14) Blood Urea Nitrogen 13mg/dL (8-26) Creatinine 1.2mg/dL (0.7-1.3) Estimated GFR (Cockcroft-Gault) 64.9 Glucose Level 228mg/dL (70-99) Calcium Level 8.2mg/dL (8.5-10.1) Glucose (Fingerstick) 183mg/dL (70-99) Microbiology 06/12/16 Blood Culture - Preliminary, Resulted NO GROWTH AFTER 1 DAY 06/12/16 Urine Culture - Preliminary, Resulted 06/12/16 Urine Culture Result 1 (ZACH) - Preliminary, Resulted Medications Current Medications Sodium Chloride 1,000 ml @ 1,000 mls/hr 1X ONCE IV Last administered on 13:32; Start 06/12/16 at 13:15; Stop 06/12/16 at 14:14; Status DC Sodium Chloride 1,000 ml @ 1,000 mls/hr 1X ONCE IV Last administered on 14:46; Start 06/12/16 at 13:15; Stop 06/12/16 at 14:14; Status DC Ceftriaxone Sodium (Rocephin 1gm Ivpb For Omni) 50 ml @ 100 mls/hr 1X ONCE IV Last administered on 06/12/16 16:08; Start 06/12/16 at 15:15; Stop 06/12/16 at 15:44; Status DC Ondansetron HCl (Zofran) 4 mg PRN Q8HRS PRN IV NAUSEA/VOMITING; Start 06/12/16 at 15:15; Stop 06/13/16 at 15:14; Status DC Morphine Sulfate 2 mg 2 mg PRN Q2HR PRN IV PAIN; Start 06/12/16 at 15:15; Stop 06/13/16 at 15:14; Status DC Sodium Chloride (Iv Sodium Chloride 0.9% 1000ml Bag) 1,000 ml @ 125 mls/hr Q8H IV Last administered on 06/13/16 05:19; Start 06/12/16 at 15:05; Stop 06/13/16 at 08:34; Status DC Insulin Aspart (Novolog) 0-7 UNITS TIDWMEALS SQ Last administered on 06/13/16 17:00; Start 06/13/16 at 08:00 Dextrose 12.5 gm 12.5 gm PRN Q15MIN PRN IV SEE COMMENTS; Start 06/12/16 at 19:00 Ceftriaxone Sodium 1 gm/ Sodium Chloride 50 ml @ 100 mls/hr Q24H IV Last administered on 06/13/16 16:14; Start 06/13/16 at 16:00; Stop 06/13/16 at 21:22; Status DC Sodium Chloride (Iv Sodium Chloride 0.9% 1000ml Bag) 1,000 ml @ 100 mls/hr Q10H IV ; Start 06/13/16 at 08:31; Stop 06/13/16 at 08:37; Status DC Potassium Chloride (Klor-Con) 10 meq [id number] PO Last administered on 06/13/16 16: 14; Start 06/13/16 at 09:00 Acetaminophen (Tylenol) 1,000 mg PRN Q6HRS PRN PO MILD PAIN / TEMP Last administered on 06/14/16 03:46; Start 06/13/16 at 08:45 Venlafaxine HCl 50 mg 50 mg TID PO Last administered on 06/13/16 20:15; Start 06/13/16 at 10:00 Sodium Chloride 1,000 ml @ 100 mls/hr Q10H IV Last administered on 06/13/16 14 :20; Start 06/13/16 at 13:00; Stop 06/13/16 at 22:00; Status DC Levofloxacin/ Dextrose 100 ml @ 100 mls/hr 1X ONCE IV ; Start 06/13/16 at 21:15 ; Stop 06/13/16 at 21:22; Status DC Meropenem/Sodium Chloride (Merrem/Iv Sodium Chloride 0.9% 50ml) 50 ml @ 100 mls /hr Q6HRS IV Last administered on 06/14/16 04:51; Start 06/13/16 at 22:00 Venlafaxine HCl (Effexor Xr) 150 mg DAILY PO ; Start 06/14/16 at 09:00; Stop 06/14 at 09:00; Status DC Lisinopril (Prinivil) 40 mg DAILY PO ; Start 06/14/16 at 09:00; Status UNV Glipizide (Glucotrol Er) 10 mg DAILY08 PO ; Start 06/14/16 at 08:00; Status UNV Active Scripts Active Venlafaxine Hcl Er (Venlafaxine Hcl) 150 Mg Tab.er.24 1 Tab PO DAILY Pioglitazone Hcl 15 Mg Tablet 1 Mg PO DAILY 30 Days Metformin Hcl 1,000 Mg Tablet 1 Tab PO BID Lisinopril 40 Mg Tablet 1 Tab PO DAILY Hydrochlorothiazide Tablet (Hydrochlorothiazide) 25 Mg Tablet 1 Tab PO DAILY Glipizide Er (Glipizide) 10 Mg Tab.er.24 1 Tab PO DAILY Atorvastatin Calcium 20 Mg Tablet 1 Tab PO DAILY Allopurinol 300 Mg Tablet 1 Tab PO DAILY Vitals/I & O Vital Sign - Last 24 Hours 06/13/16 06/13/16 06/13/16 06/13/16 08:00 10:58 15:27 20:00 Temp 98.8 100.2 98.8 100.2 Pulse 97 109 Resp 20 20 B/P 114/76 121/79 Pulse Ox 92 92 O2 Delivery Room Air Room Air Room Air Room Air 06/13/16 06/13/16 06/14/16 06/14/16 20:35 23:14 03:38 07:51 Temp 101.0 98.1 102.0 99.2 101.0 98.1 102.0 99.2 Pulse 118 107 112 72 Resp 28 20 18 B/P 156/100 156/105 150/102 136/91 Pulse Ox 92 91 91 94 O2 Delivery Room Air Room Air Room Air Room Air O2 Flow Rate 0.1 Intake and Output 06/13/16 06/13/16 06/14/16 15:00 23:00 07:00 Intake Total 380 ml 2100 ml 1450 ml Output Total 800 ml 900 ml 900 ml Balance -420 ml 1200 ml 550 ml VIDHYA KNIGHT MD Jun 14, 2016 08:03
[2016-06-14] MEDS: PIOGLITAZONE 15 MG TABLET. PO SCH (08:32)
[2016-06-14] MEDS: GLIPIZIDE ER 5 MG TAB.ER.24 PO SCH (08:32)
[2016-06-14] MEDS: VENLAFAXINE 50 MG TABLET. PO SCH ×3 (08:32→21:13)
[2016-06-14] MEDS: LISINOPRIL 40 MG TABLET. PO SCH (08:33)
[2016-06-14] MEDS: POTASSIUM CHLORIDE 10 MEQ TABLET.ER. PO SCH ×2 (08:33→17:24)
[2016-06-14] MEDS: INSULIN ASPART 300 UNITS/3 ML INSULN.PEN SQ SCH ×3 (08:39→17:29)
[2016-06-14] MEDS ORDERED: VENLAFAXINE XR 37.5 MG CAP.ER.24H. PO SCH (09:00)
--- NOTE | 2016-06-14 09:18 | PDOC ---
Infectious Disease Note ROS ROS Vital Sign Vital Signs Vital Signs Date Time Temp Pulse Resp B/P Pulse Ox O2 Delivery O2 Flow Rate FiO2 06/14/16 08:33 97 138/97 06/14/16 07:00 98.7 18 97 Room Air 98.7 Labs Lab Laboratory Tests Test 06/13/16 11:08 06/13/16 16:11 06/13/16 20:46 06/13/16 21:28 Glucose (Fingerstick) 188mg/dL (70-99) 171mg/dL (70-99) 192mg/dL (70-99) White Blood Count 18.4x10^3/uL (4.0-11.0) Red Blood Count 4.56x10^6/uL (4.30-5.70) Hemoglobin 13.5g/dL (13.0-17.5) Hematocrit 41.1% (39.0-53.0) Mean Corpuscular Volume 90fL (79-100) Mean Corpuscular Hemoglobin 30pg (25-35) Mean Corpuscular Hemoglobin Concent 33g/dL (31-37) Red Cell Distribution Width 13.4% (11.5-14.5) Platelet Count 129x10^3/uL (140-400) Neutrophils (%) (Auto) 90% (31-73) Lymphocytes (%) (Auto) 5% (24-48) Monocytes (%) (Auto) 5% (0-9) Eosinophils (%) (Auto) 0% (0-3) Basophils (%) (Auto) 0% (0-3) Neutrophils # (Auto) 16.6x10^3uL (1.8-7.7) Lymphocytes # (Auto) 0.8x10^3/uL (1.0-4.8) Monocytes # (Auto) 0.9x10^3/uL (0.0-1.1) Eosinophils # (Auto) 0.0x10^3/uL (0.0-0.7) Basophils # (Auto) 0.1x10^3/uL (0.0-0.2) Segmented Neutrophils % 67% (35-66) Band Neutrophils % 22% (0-9) Lymphocytes % 8% (24-48) Monocytes % 3% (0-10) Toxic Granulation Slight Toxic Vacuolation Slight Platelet Estimate Decreased (ADEQUATE) Sodium Level 135mmol/L (136-145) Potassium Level 3.3mmol/L (3.5-5.1) Chloride Level 99mmol/L (98-107) Carbon Dioxide Level 23mmol/L (21-32) Anion Gap 13 (6-14) Blood Urea Nitrogen 15mg/dL (8-26) Creatinine 1.3mg/dL (0.7-1.3) Estimated GFR (Cockcroft-Gault) 59.2 BUN/Creatinine Ratio 12 (6-20) Glucose Level 245mg/dL (70-99) Lactic Acid Level 1.6mmol/L (0.4-2.0) Calcium Level 8.4mg/dL (8.5-10.1) Total Bilirubin 0.6mg/dL (0.2-1.0) Aspartate Amino Transf (AST/SGOT) 23U/L (15-37) Alanine Aminotransferase (ALT/SGPT) 41U/L (16-63) Alkaline Phosphatase 76U/L (46-116) Total Protein 6.6g/dL (6.4-8.2) Albumin 2.5g/dL (3.4-5.0) Albumin/Globulin Ratio 0.6 (1.0-1.7) Test 06/14/16 05:05 06/14/16 07:12 White Blood Count 16.3x10^3/uL (4.0-11.0) Red Blood Count 4.52x10^6/uL (4.30-5.70) Hemoglobin 13.4g/dL (13.0-17.5) Hematocrit 39.9% (39.0-53.0) Mean Corpuscular Volume 88fL (79-100) Mean Corpuscular Hemoglobin 30pg (25-35) Mean Corpuscular Hemoglobin Concent 34g/dL (31-37) Red Cell Distribution Width 13.4% (11.5-14.5) Platelet Count 133x10^3/uL (140-400) Sodium Level 132mmol/L (136-145) Potassium Level 3.1mmol/L (3.5-5.1) Chloride Level 98mmol/L (98-107) Carbon Dioxide Level 25mmol/L (21-32) Anion Gap 9 (6-14) Blood Urea Nitrogen 13mg/dL (8-26) Creatinine 1.2mg/dL (0.7-1.3) Estimated GFR (Cockcroft-Gault) 64.9 Glucose Level 228mg/dL (70-99) Calcium Level 8.2mg/dL (8.5-10.1) Glucose (Fingerstick) 183mg/dL (70-99) Objective Assessment GNR Sepsis POA 2/7 UTI - POA 2/7 Leukocytosis Fever DM2 HTN Plan Plan of Care Cont meropenem Blood/Urine cx Gram neg rods renal U/s f/u lab and sensitivity Thank you # [id number] SONIA TALBERT MD Jun 14, 2016 09:17
--- NOTE | 2016-06-14 16:49 | RAD ---
Indication urinary tract infection. Grayscale imaging targeted to the kidneys was performed. It should be noted that most patients with pyelonephritis ultrasound imaging is unremarkable. The right kidney measures 12.2 x 7.2 x 7.2 cm. No hydronephrosis or mass is seen. The left kidney measures 12.9 x 7.4 x 6.4 cm and similarly shows no evidence of hydronephrosis or mass. The urinary bladder appears grossly normal. IMPRESSION: Normal morphologic appearance of the kidneys
[2016-06-15] MEDS: MEROPENEM 500 MG in IV NORMAL SALINE 50ML 50 ML IV SCH ×5 (00:31→23:30)
[2016-06-15] MEDS: ACETAMINOPHEN 500 MG TABLET PO PRN ×3 (02:59→20:49)
[2016-06-15 03:00] VITALS: BP 140/94
[2016-06-15 05:48] LABS: CALCIUM 8.8 mg/dL (8.5-10.1); CREATININE 1.3 mg/dL (0.7-1.3); GFR 59.2; POTASSIUM 3.5 mmol/L (3.5-5.1)
[2016-06-15 07:00] VITALS: BP 161/108
[2016-06-15] MEDS: PIOGLITAZONE 15 MG TABLET. PO SCH (08:03)
[2016-06-15] MEDS: LISINOPRIL 40 MG TABLET. PO SCH (08:03)
[2016-06-15] MEDS: GLIPIZIDE ER 5 MG TAB.ER.24 PO SCH (08:03)
[2016-06-15] MEDS: VENLAFAXINE 50 MG TABLET. PO SCH ×3 (08:03→20:48)
[2016-06-15] MEDS: POTASSIUM CHLORIDE 10 MEQ TABLET.ER. PO SCH ×2 (08:03→15:29)
[2016-06-15] MEDS: INSULIN ASPART 300 UNITS/3 ML INSULN.PEN SQ SCH ×3 (08:05→17:14)
[2016-06-15 08:07] LABS: HEMATOCRIT 39.6 % (39.0-53.0); RED BLOOD COUNT 4.38 x10^6/uL (4.30-5.70); RED CELL DISTRIBUTION WIDTH 13.8 % (11.5-14.5); WHITE BLOOD COUNT 11.5 x10^3/uL (4.0-11.0)
--- NOTE | 2016-06-15 09:10 | PDOC ---
PROGRESS NOTES Subjective Subjective Patient reports intermittent fever continues, no other concerns. Objective Objective Vital Signs Date Time Temp Pulse Resp B/P Pulse Ox O2 Delivery O2 Flow Rate FiO2 06/15/16 08:03 111 140/94 06/15/16 03:00 102.1 22 91 Room Air 102.1 06/14/16 11:14 2.0 Intake and Output 06/15/16 07:00 Intake Total 1940 ml Output Total 1100 ml Balance 840 ml Intake Oral 1940 ml Output Urine Total 1100 ml # Voids 2 Physical Exam Abdomen: Normal bowel sounds, Soft, No tenderness Heart: Regular rate Extremities: No edema General: Alert, Oriented X3, No acute distress Lungs: Clear to auscultation Assessment Assessment Problems Medical Problems: (1) Dysuria Status: Acute (2) Tachycardia Status: Acute Plan Plan of Care 1. UTI with sepsis - fevers continue. Urine culture positive for E Coli which is glaser-sensitive, blood culture report still pending. WBC's decreasing. Continue Meropenem as per ID. 2. DM2 - glucose still elevated. Resume his usual Metformin and continue other home meds. 3. HTN - controlled, continue present meds. 4. hypokalemia - stable with po replacement. Creatinine at baseline. Comment Review of Relevant I have reviewed the following items zaynab (where applicable) has been applied. Labs Laboratory Tests Test 06/13/16 11:08 06/13/16 16:11 06/13/16 20:46 06/13/16 21:28 Glucose (Fingerstick) 188mg/dL (70-99) 171mg/dL (70-99) 192mg/dL (70-99) White Blood Count 18.4x10^3/uL (4.0-11.0) Red Blood Count 4.56x10^6/uL (4.30-5.70) Hemoglobin 13.5g/dL (13.0-17.5) Hematocrit 41.1% (39.0-53.0) Mean Corpuscular Volume 90fL (79-100) Mean Corpuscular Hemoglobin 30pg (25-35) Mean Corpuscular Hemoglobin Concent 33g/dL (31-37) Red Cell Distribution Width 13.4% (11.5-14.5) Platelet Count 129x10^3/uL (140-400) Neutrophils (%) (Auto) 90% (31-73) Lymphocytes (%) (Auto) 5% (24-48) Monocytes (%) (Auto) 5% (0-9) Eosinophils (%) (Auto) 0% (0-3) Basophils (%) (Auto) 0% (0-3) Neutrophils # (Auto) 16.6x10^3uL (1.8-7.7) Lymphocytes # (Auto) 0.8x10^3/uL (1.0-4.8) Monocytes # (Auto) 0.9x10^3/uL (0.0-1.1) Eosinophils # (Auto) 0.0x10^3/uL (0.0-0.7) Basophils # (Auto) 0.1x10^3/uL (0.0-0.2) Segmented Neutrophils % 67% (35-66) Band Neutrophils % 22% (0-9) Lymphocytes % 8% (24-48) Monocytes % 3% (0-10) Toxic Granulation Slight Toxic Vacuolation Slight Platelet Estimate Decreased (ADEQUATE) Sodium Level 135mmol/L (136-145) Potassium Level 3.3mmol/L (3.5-5.1) Chloride Level 99mmol/L (98-107) Carbon Dioxide Level 23mmol/L (21-32) Anion Gap 13 (6-14) Blood Urea Nitrogen 15mg/dL (8-26) Creatinine 1.3mg/dL (0.7-1.3) Estimated GFR (Cockcroft-Gault) 59.2 BUN/Creatinine Ratio 12 (6-20) Glucose Level 245mg/dL (70-99) Lactic Acid Level 1.6mmol/L (0.4-2.0) Calcium Level 8.4mg/dL (8.5-10.1) Total Bilirubin 0.6mg/dL (0.2-1.0) Aspartate Amino Transf (AST/SGOT) 23U/L (15-37) Alanine Aminotransferase (ALT/SGPT) 41U/L (16-63) Alkaline Phosphatase 76U/L (46-116) Total Protein 6.6g/dL (6.4-8.2) Albumin 2.5g/dL (3.4-5.0) Albumin/Globulin Ratio 0.6 (1.0-1.7) Test 2/9/17 05:05 06/14/16 07:12 06/14/16 11:28 06/14/16 16:44 White Blood Count 16.3x10^3/uL (4.0-11.0) Red Blood Count 4.52x10^6/uL (4.30-5.70) Hemoglobin 13.4g/dL (13.0-17.5) Hematocrit 39.9% (39.0-53.0) Mean Corpuscular Volume 88fL (79-100) Mean Corpuscular Hemoglobin 30pg (25-35) Mean Corpuscular Hemoglobin Concent 34g/dL (31-37) Red Cell Distribution Width 13.4% (11.5-14.5) Platelet Count 133x10^3/uL (140-400) Sodium Level 132mmol/L (136-145) Potassium Level 3.1mmol/L (3.5-5.1) Chloride Level 98mmol/L (98-107) Carbon Dioxide Level 25mmol/L (21-32) Anion Gap 9 (6-14) Blood Urea Nitrogen 13mg/dL (8-26) Creatinine 1.2mg/dL (0.7-1.3) Estimated GFR (Cockcroft-Gault) 64.9 Glucose Level 228mg/dL (70-99) Calcium Level 8.2mg/dL (8.5-10.1) Glucose (Fingerstick) 183mg/dL (70-99) 218mg/dL (70-99) 183mg/dL (70-99) Test 06/14/16 20:37 06/15/16 03:41 06/15/16 06:59 Glucose (Fingerstick) 228mg/dL (70-99) 143mg/dL (70-99) White Blood Count 11.5x10^3/uL (4.0-11.0) Red Blood Count 4.38x10^6/uL (4.30-5.70) Hemoglobin 13.0g/dL (13.0-17.5) Hematocrit 39.6% (39.0-53.0) Mean Corpuscular Volume 90fL (79-100) Mean Corpuscular Hemoglobin 30pg (25-35) Mean Corpuscular Hemoglobin Concent 33g/dL (31-37) Red Cell Distribution Width 13.8% (11.5-14.5) Platelet Count 138x10^3/uL (140-400) Sodium Level 132mmol/L (136-145) Potassium Level 3.5mmol/L (3.5-5.1) Chloride Level 98mmol/L (98-107) Carbon Dioxide Level 24mmol/L (21-32) Anion Gap 10 (6-14) Blood Urea Nitrogen 11mg/dL (8-26) Creatinine 1.3mg/dL (0.7-1.3) Estimated GFR (Cockcroft-Gault) 59.2 Glucose Level 233mg/dL (70-99) Calcium Level 8.8mg/dL (8.5-10.1) Laboratory Tests Test 06/14/16 11:28 06/14/16 16:44 06/14/16 20:37 06/15/16 03:41 Glucose (Fingerstick) 218mg/dL (70-99) 183mg/dL (70-99) 228mg/dL (70-99) White Blood Count 11.5x10^3/uL (4.0-11.0) Red Blood Count 4.38x10^6/uL (4.30-5.70) Hemoglobin 13.0g/dL (13.0-17.5) Hematocrit 39.6% (39.0-53.0) Mean Corpuscular Volume 90fL (79-100) Mean Corpuscular Hemoglobin 30pg (25-35) Mean Corpuscular Hemoglobin Concent 33g/dL (31-37) Red Cell Distribution Width 13.8% (11.5-14.5) Platelet Count 138x10^3/uL (140-400) Sodium Level 132mmol/L (136-145) Potassium Level 3.5mmol/L (3.5-5.1) Chloride Level 98mmol/L (98-107) Carbon Dioxide Level 24mmol/L (21-32) Anion Gap 10 (6-14) Blood Urea Nitrogen 11mg/dL (8-26) Creatinine 1.3mg/dL (0.7-1.3) Estimated GFR (Cockcroft-Gault) 59.2 Glucose Level 233mg/dL (70-99) Calcium Level 8.8mg/dL (8.5-10.1) Test 06/15/16 06:59 Glucose (Fingerstick) 143mg/dL (70-99) Microbiology 06/12/16 Blood Culture - Preliminary, Resulted NO GROWTH AFTER 2 DAYS 06/12/16 Urine Culture - Final, Complete 06/12/16 Urine Culture Result 1 (ZACH) - Final, Complete 06/12/16 Antimicrobic Susceptibility - Final, Complete Medications Current Medications Sodium Chloride 1,000 ml @ 1,000 mls/hr 1X ONCE IV Last administered on 13:32; Start 06/12/16 at 13:15; Stop 06/12/16 at 14:14; Status DC Sodium Chloride 1,000 ml @ 1,000 mls/hr 1X ONCE IV Last administered on 14:46; Start 06/12/16 at 13:15; Stop 06/12/16 at 14:14; Status DC Ceftriaxone Sodium (Rocephin 1gm Ivpb For Omni) 50 ml @ 100 mls/hr 1X ONCE IV Last administered on 06/12/16 16:08; Start 06/12/16 at 15:15; Stop 06/12/16 at 15:44; Status DC Ondansetron HCl (Zofran) 4 mg PRN Q8HRS PRN IV NAUSEA/VOMITING; Start 06/12/16 at 15:15; Stop 06/13/16 at 15:14; Status DC Morphine Sulfate 2 mg 2 mg PRN Q2HR PRN IV PAIN; Start 06/12/16 at 15:15; Stop 06/13/16 at 15:14; Status DC Sodium Chloride (Iv Sodium Chloride 0.9% 1000ml Bag) 1,000 ml @ 125 mls/hr Q8H IV Last administered on 06/13/16 05:19; Start 06/12/16 at 15:05; Stop 06/13/16 at 08:34; Status DC Insulin Aspart (Novolog) 0-7 UNITS TIDWMEALS SQ Last administered on 06/14/16 17:29; Start 06/13/16 at 08:00 Dextrose 12.5 gm 12.5 gm PRN Q15MIN PRN IV SEE COMMENTS; Start 06/12/16 at 19:00 Ceftriaxone Sodium 1 gm/ Sodium Chloride 50 ml @ 100 mls/hr Q24H IV Last administered on 06/13/16 16:14; Start 06/13/16 at 16:00; Stop 06/13/16 at 21:22; Status DC Sodium Chloride (Iv Sodium Chloride 0.9% 1000ml Bag) 1,000 ml @ 100 mls/hr Q10H IV ; Start 06/13/16 at 08:31; Stop 06/13/16 at 08:37; Status DC Potassium Chloride (Klor-Con) 10 meq BID94 PO Last administered on 06/15/16 08 :03; Start 06/13/16 at 09:00 Acetaminophen (Tylenol) 1,000 mg PRN Q6HRS PRN PO MILD PAIN / TEMP Last administered on 06/15/16 02:59; Start 06/13/16 at 08:45 Venlafaxine HCl 50 mg 50 mg TID PO Last administered on 06/15/16 08:03; Start 06/13/16 at 10:00 Sodium Chloride 1,000 ml @ 100 mls/hr Q10H IV Last administered on 06/13/16 14 :20; Start 06/13/16 at 13:00; Stop 06/13/16 at 22:00; Status DC Levofloxacin/ Dextrose 100 ml @ 100 mls/hr 1X ONCE IV ; Start 06/13/16 at 21:15 ; Stop 06/13/16 at 21:22; Status DC Meropenem/Sodium Chloride (Merrem/Iv Sodium Chloride 0.9% 50ml) 50 ml @ 100 mls /hr Q6HRS IV Last administered on 06/15/16 06:30; Start 06/13/16 at 22:00 Venlafaxine HCl (Effexor Xr) 150 mg DAILY PO ; Start 06/14/16 at 09:00; Stop 06/14 at 09:00; Status DC Lisinopril (Prinivil) 40 mg DAILY PO Last administered on 06/15/16 08:03; Start 06/14/16 at 09:00 Glipizide (Glucotrol Er) 10 mg DAILY08 PO Last administered on 06/15/16 08:03 ; Start 06/14/16 at 08:00 Pioglitazone HCl (Actos) 15 mg DAILY PO Last administered on 2/10/17at 08:03; Start 06/14/16 at 09:00 Active Scripts Active Venlafaxine Hcl Er (Venlafaxine Hcl) 150 Mg Tab.er.24 1 Tab PO DAILY Pioglitazone Hcl 15 Mg Tablet 1 Mg PO DAILY 30 Days Metformin Hcl 1,000 Mg Tablet 1 Tab PO BID Lisinopril 40 Mg Tablet 1 Tab PO DAILY Hydrochlorothiazide Tablet (Hydrochlorothiazide) 25 Mg Tablet 1 Tab PO DAILY Glipizide Er (Glipizide) 10 Mg Tab.er.24 1 Tab PO DAILY Atorvastatin Calcium 20 Mg Tablet 1 Tab PO DAILY Allopurinol 300 Mg Tablet 1 Tab PO DAILY Vitals/I & O Vital Sign - Last 24 Hours 06/14/16 06/14/16 06/14/16 06/14/16 11:14 14:55 19:00 20:00 Temp 101.3 101.3 98.8 101.3 101.3 98.8 Pulse 114 114 100 Resp 16 B/P 150/107 131/90 139/93 Pulse Ox 95 93 90 O2 Delivery Nasal Cannula Room Air Room Air Room Air O2 Flow Rate 2.0 06/14/16 06/15/16 06/15/16 23:00 03:00 08:03 Temp 99.2 102.1 99.2 102.1 Pulse 91 111 111 Resp 22 B/P 128/85 140/94 140/94 Pulse Ox 93 91 O2 Delivery Room Air Room Air Intake and Output 06/14/16 06/14/16 06/15/16 15:00 23:00 07:00 Intake Total 240 ml 740 ml 960 ml Output Total 1100 ml Balance -860 ml 740 ml 960 ml VIDHYA KNIGHT MD Jun 15, 2016 09:10
[2016-06-15] MEDS: METFORMIN 1,000 MG TABLET PO SCH ×2 (10:57→17:08)
[2016-06-15 11:06] VITALS: BP 155/106
--- NOTE | 2016-06-15 14:10 | PDOC ---
Infectious Disease Note Subjective Subjective Some better. No pain. Appetite improving ROS ROS GEN: Denies fevers, chills, sweats HEENT: Denies blurred vision, sore throat CV: Denies chest pain RESP: Denies shortness of air, cough GI: Denies n/v/d NEURO: Denies confusion, dizziness MSK: Denies weakness, joint pain/swelling Vital Sign Vital Signs Vital Signs Date Time Temp Pulse Resp B/P Pulse Ox O2 Delivery O2 Flow Rate FiO2 06/15/16 11:06 99.9 99 22 155/106 96 Room Air 99.9 06/14/16 11:14 2.0 Physical Exam PHYSICAL EXAM GENERAL: NAD, Alert HEENT: PERRL, OC/OP -clear NECK: Supple, no JVD, no LN LUNGS: Clear HEART: S1S2, no gallop, no murmur ABD: Soft, NT, no organomegaly, no rebound, obese EXT: No edema, no cyanosis 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, 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, no focal neurologic deficit SKIN: No rash IV: ok Labs Lab Laboratory Tests Test 06/14/16 16:44 06/14/16 20:37 06/15/16 03:41 06/15/16 06:59 Glucose (Fingerstick) 183mg/dL (70-99) 228mg/dL (70-99) 143mg/dL (70-99) White Blood Count 11.5x10^3/uL (4.0-11.0) Red Blood Count 4.38x10^6/uL (4.30-5.70) Hemoglobin 13.0g/dL (13.0-17.5) Hematocrit 39.6% (39.0-53.0) Mean Corpuscular Volume 90fL (79-100) Mean Corpuscular Hemoglobin 30pg (25-35) Mean Corpuscular Hemoglobin Concent 33g/dL (31-37) Red Cell Distribution Width 13.8% (11.5-14.5) Platelet Count 138x10^3/uL (140-400) Sodium Level 132mmol/L (136-145) Potassium Level 3.5mmol/L (3.5-5.1) Chloride Level 98mmol/L (98-107) Carbon Dioxide Level 24mmol/L (21-32) Anion Gap 10 (6-14) Blood Urea Nitrogen 11mg/dL (8-26) Creatinine 1.3mg/dL (0.7-1.3) Estimated GFR (Cockcroft-Gault) 59.2 Glucose Level 233mg/dL (70-99) Calcium Level 8.8mg/dL (8.5-10.1) Test 06/15/16 11:27 Glucose (Fingerstick) 206mg/dL (70-99) Micro Escherichia coli Greater than 100,000 colony forming units per mL ANTIMICROBIAL SUSCEPTIBILITY Final Comment S = Susceptible; I = Intermediate; R = Resistant P = Positive; N = Negative MICS are expressed in micrograms per mL Antibiotic RSLT#1 RSLT#2 RSLT#3 RSLT#4 Amoxicillin/Clavulanic Acid S Ampicillin S Cefepime S Ceftriaxone S Cefuroxime S Cephalothin I Ciprofloxacin S Ertapenem S Gentamicin S Imipenem S Levofloxacin S Nitrofurantoin S Piperacillin S Tetracycline R Tobramycin S Trimethoprim/Sulfa S Objective Assessment GNR Sepsis POA 2/7 Ecoli UTI - POA 2/7 Leukocytosis - better Fever - persist Based on urine has been on appropriate abx. Blood pend. U/S neg DM2 HTN Plan Plan of Care Cont meropenem F/u Blood/Urine cx Gram neg rods Check flu screen. If worsens may need CT scan f/u lab and sensitivity SONIA TALBERT MD Jun 15, 2016 14:10
[2016-06-15 14:53] VITALS: BP 132/90
--- NOTE | 2016-06-15 17:12 | CONS ---
DATE OF CONSULTATION: 06/14/2016 LOCATION: The patient's room is 548. REQUESTING PHYSICIAN: Dr. Sykes REASON FOR CONSULTATION: UTI, sepsis. 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 He states he went to bed in his normal state of health the other night, but woke up and felt a little "out of it." He states that he was having problems passing his urine in small amounts, had an odor to it and then also did pass some blood occasionally for approximately 3 hours. Also had some pain on passing his urine. Also, he felt little confused, took his son to school an hour earlier than normal. He later apparently had a syncopal episode and his found him on the floor and brought him to the Emergency Room and was feeling better, so he went home, but was seen in the office and apparently was very diaphoretic and tachycardic and was admitted to [facility] on the . A white count of 18.3 at the time of presentation. Urine was consistent with urinary tract infection. He was placed on Rocephin. Last evening, however, he developed a temperature of 101 and blood cultures returned positive for gram-negative rods. I was consulted. A dose of levofloxacin had been ordered. Given the fact that he is a nurse and uncertain if he has had previous urinary tract infections or exposure, I changed him to meropenem. Currently, the patient is sitting in a chair, is eating lunch, states he is feeling some better. He states he is less confused. He has no headaches, no sinus issues, sore throat or cough. No nausea, no vomiting, no diarrhea. States his urine has cleared up. Denies any current back pain. No rashes or itches. PAST MEDICAL HISTORY: Positive for type 2 diabetes, hypertension, hyperlipidemia, gout, depression, anxiety. PAST SURGICAL HISTORY: None. ALLERGIES: No known drug allergies. REVIEW OF SYSTEMS: Otherwise negative except for mentioned above. SOCIAL HISTORY: He is . His is a nurse as well. He works at the [employer]. He did work in a [employer] for a number of years, but he has been at [employer] for 10 years. No excess alcohol. No tobacco. FAMILY HISTORY: Noncontributory for any kidney stones or pyelonephritis or urinary tract infections. CURRENT MEDICATIONS: Include the meropenem, the Rocephin and the levofloxacin x 1. He is also on glipizide, Prinivil, Actos. Other meds are available and have reviewed in the chart. PHYSICAL EXAMINATION: VITAL SIGNS: T-max has been 102 degrees, most recently 101.1, pulse 114, respirations 22, blood pressure 150/107, satting 95% on room air, although currently he is off oxygen and eating lunch. CONSTITUTIONAL: He is pleasant, cooperative, in no acute distress. HEENT: Pupils are equal and reactive. Normal conjunctivae. NECK: Supple. LUNGS: Clear to auscultation. HEART: S1, S2. ABDOMEN: Soft, nontender, nondistended, positive bowel sounds. He does not have any CVA tenderness. EXTREMITIES: No clubbing, cyanosis or gross edema. SKIN: Warm to touch without signs of rash. NEUROLOGIC: He is nonfocal, moves all extremities and answers questions appropriately. PSYCHIATRIC: Affect is appropriate. LABORATORY VALUES: White count today is 16.3, hemoglobin of 13.4, platelets of 133. Yesterday, he had 22% bands, increased from 7% at time of presentation, creatinine of 1.2, glucose of 228. Normal liver function study tests. Urine culture with gram-negative rods. Blood cultures now positive for gram-negative rods as well. Chest x-ray is without acute process. IMPRESSION: 1. Gram-negative sepsis, present on admission from the 7th. 2. Urinary tract infection, present on admission from the 7th. 3. Leukocytosis. 4. Fever. 5. Diabetes. 6. Hypertension. RECOMMENDATIONS: For now, continue the meropenem. We will follow up on the blood and urine cultures with gram-negative rods. We will obtain a renal ultrasound to rule out a potential or maybe a previous pyelo or passage of stone. Again, no idea if he has other potential stones in there. Thank you for allowing me to participate in the patient's care. If you have any questions, please do not hesitate to contact me. SONIA TALBERT MD DR: SCOUT/amrik JOB#: [id number] / [id number]
[2016-06-15 18:14] LABS: OBC FLU VALID
[2016-06-15 19:00] VITALS: BP 149/99
[2016-06-15 23:00] VITALS: BP 133/86
[2016-06-16 03:00] VITALS: BP 146/91
[2016-06-16] MEDS: MEROPENEM 500 MG in IV NORMAL SALINE 50ML 50 ML IV SCH ×2 (05:36→12:28)
[2016-06-16] MEDS: ACETAMINOPHEN 500 MG TABLET PO PRN ×2 (05:41→20:23)
[2016-06-16] MEDS: INSULIN ASPART 300 UNITS/3 ML INSULN.PEN SQ SCH ×3 (07:48→17:56)
[2016-06-16 08:10] VITALS: BP 129/94
[2016-06-16] MEDS: GLIPIZIDE ER 5 MG TAB.ER.24 PO SCH (08:41)
[2016-06-16] MEDS: POTASSIUM CHLORIDE 10 MEQ TABLET.ER. PO SCH ×2 (08:42→17:53)
[2016-06-16] MEDS: VENLAFAXINE 50 MG TABLET. PO SCH ×3 (08:42→20:23)
[2016-06-16] MEDS: PIOGLITAZONE 15 MG TABLET. PO SCH (08:42)
[2016-06-16] MEDS: LISINOPRIL 40 MG TABLET. PO SCH (08:42)
[2016-06-16] MEDS: METFORMIN 1,000 MG TABLET PO SCH (08:42)
[2016-06-16 11:00] VITALS: BP 132/88
--- NOTE | 2016-06-16 13:49 | PDOC ---
Infectious Disease Note Subjective Subjective Feeling better over all Fever last evening, none so far today ROS ROS GEN: Denies chills, sweats CV: Denies chest pain RESP: Denies shortness of air, cough GI: Denies n/v/d Vital Sign Vital Signs Vital Signs Date Time Temp Pulse Resp B/P Pulse Ox O2 Delivery O2 Flow Rate FiO2 06/16/16 11:00 98.4 95 20 132/88 95 Room Air 98.4 06/16/16 03:00 2.0 Physical Exam PHYSICAL EXAM GENERAL: NAD, Alert HEENT: PERRL, OC/OP NECK: Supple, no JVD, no LN LUNGS: Clear HEART: S1S2, no gallop, no murmur ABD: Soft, NT, no organomegaly, no rebound EXT: No edema, no cyanosis 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 ANTIMICROBIAL SUSCEPTIBILITY Final Comment S = Susceptible; I = Intermediate; R = Resistant P = Positive; N = Negative MICS are expressed in micrograms per mL Antibiotic RSLT#1 RSLT#2 RSLT#3 RSLT#4 Amoxicillin/Clavulanic Acid S Ampicillin S Cefepime S Ceftriaxone S Cefuroxime S Cephalothin I Ciprofloxacin S Ertapenem S Gentamicin S Imipenem S Levofloxacin S Nitrofurantoin S Piperacillin S Tetracycline R Tobramycin S Trimethoprim/Sulfa S Objective Assessment GNR Sepsis POA 2. E. coli Ecoli UTI - POA 2 Leukocytosis - better Fever - persist. Based on urine has been on appropriate abx. U/S neg DM2 HTN Plan Plan of Care Cont meropenem Flu screen negative Attending Co-Sign The patient was seen and interviewed as well as examined at the bedside. The chart was reviewed. The case was discussed. Agree with the plan of care. change meropenem to cipro ct abd and pelvis, pvr and that is ok then d/c ok DEMARCO MCALLISTER APRN Jun 16, 2016 13:49 KATIE GAY MD Jun 16, 2016 15:16
--- NOTE | 2016-06-16 14:37 | RAD ---
Single view chest History:new wheezing An AP view of the chest is submitted. Comparison: 06/12/2016. Findings: There is no significant infiltrate, pleural effusion, or pneumothorax. The pericardial cardiac silhouette is within normal limits in size. The trachea is in the midline. No acute osseous abnormality is identified. Impression: There is no evidence of acute cardiopulmonary disease.
[2016-06-16] MEDS: ALBUTEROL SULFATE 2.5 MG/3 ML NEBU. NEB SCH ×2 (15:09→20:30)
[2016-06-16 15:10] VITALS: BP 148/100
--- NOTE | 2016-06-16 16:04 | PDOC ---
PROGRESS NOTES Subjective Subjective He has developed a wheezy cough, hx of asthma, afebrile and seems improved from infection standpoint Objective Objective Vital Signs Date Time Temp Pulse Resp B/P Pulse Ox O2 Delivery O2 Flow Rate FiO2 06/16/16 15:11 95 Room Air 06/16/16 11:00 98.4 95 20 132/88 98.4 06/16/16 03:00 2.0 Intake and Output 06/16/16 07:00 Intake Total 2940 ml Output Total 400 ml Balance 2540 ml Intake Oral 2940 ml Output Urine Total 400 ml # Voids 2 Physical Exam Abdomen: Normal bowel sounds, Soft Heart: Regular rate Extremities: No clubbing, No cyanosis, No edema General: Alert, Oriented X3, Cooperative HEENT: Atraumatic Lungs: Other (end expiratory wheezes with cough) MUSCULOSKELETAL: No joint tenderness, No swelling Neck: Supple, No JVD Neuro: Normal speech, Strength at 5/5 X4 ext Psych/Mental Status: Mental status NL Skin: No rashes, No breakdown Assessment Assessment Problems Medical Problems: E.coli sepsis mild intermittent asthma with exacerbation Plan Plan of Care add neb treatments, continue IV antibiotics, check CXR, monitor lab, monitor for further fever Comment Review of Relevant I have reviewed the following items zaynab (where applicable) has been applied. Labs Laboratory Tests Test 06/14/16 16:44 06/14/16 20:37 06/15/16 03:41 06/15/16 06:59 Glucose (Fingerstick) 183mg/dL (70-99) 228mg/dL (70-99) 143mg/dL (70-99) White Blood Count 11.5x10^3/uL (4.0-11.0) Red Blood Count 4.38x10^6/uL (4.30-5.70) Hemoglobin 13.0g/dL (13.0-17.5) Hematocrit 39.6% (39.0-53.0) Mean Corpuscular Volume 90fL (79-100) Mean Corpuscular Hemoglobin 30pg (25-35) Mean Corpuscular Hemoglobin Concent 33g/dL (31-37) Red Cell Distribution Width 13.8% (11.5-14.5) Platelet Count 138x10^3/uL (140-400) Sodium Level 132mmol/L (136-145) Potassium Level 3.5mmol/L (3.5-5.1) Chloride Level 98mmol/L (98-107) Carbon Dioxide Level 24mmol/L (21-32) Anion Gap 10 (6-14) Blood Urea Nitrogen 11mg/dL (8-26) Creatinine 1.3mg/dL (0.7-1.3) Estimated GFR (Cockcroft-Gault) 59.2 Glucose Level 233mg/dL (70-99) Calcium Level 8.8mg/dL (8.5-10.1) Test 06/15/16 11:27 06/15/16 14:00 06/15/16 16:36 06/15/16 20:37 Glucose (Fingerstick) 206mg/dL (70-99) 190mg/dL (70-99) 158mg/dL (70-99) Influenza Type A Antigen Negative (NEGATIVE) Influenza Type B Antigen Negative (NEGATIVE) Test 06/16/16 06:57 06/16/16 11:11 Glucose (Fingerstick) 182mg/dL (70-99) 219mg/dL (70-99) Laboratory Tests Test 06/15/16 16:36 06/15/16 20:37 06/16/16 06:57 06/16/16 11:11 Glucose (Fingerstick) 190mg/dL (70-99) 158mg/dL (70-99) 182mg/dL (70-99) 219mg/dL (70-99) Microbiology 06/12/16 Blood Culture - Preliminary, Resulted NO GROWTH AFTER 3 DAYS 06/12/16 Urine Culture - Final, Complete 06/12/16 Urine Culture Result 1 (ZACH) - Final, Complete 06/12/16 Antimicrobic Susceptibility - Final, Complete Medications Current Medications Sodium Chloride 1,000 ml @ 1,000 mls/hr 1X ONCE IV Last administered on 13:32; Start 06/12/16 at 13:15; Stop 06/12/16 at 14:14; Status DC Sodium Chloride 1,000 ml @ 1,000 mls/hr 1X ONCE IV Last administered on 14:46; Start 06/12/16 at 13:15; Stop 06/12/16 at 14:14; Status DC Ceftriaxone Sodium (Rocephin 1gm Ivpb For Omni) 50 ml @ 100 mls/hr 1X ONCE IV Last administered on 06/12/16 16:08; Start 06/12/16 at 15:15; Stop 06/12/16 at 15:44; Status DC Ondansetron HCl (Zofran) 4 mg PRN Q8HRS PRN IV NAUSEA/VOMITING; Start 06/12/16 at 15:15; Stop 06/13/16 at 15:14; Status DC Morphine Sulfate 2 mg 2 mg PRN Q2HR PRN IV PAIN; Start 06/12/16 at 15:15; Stop 06/13/16 at 15:14; Status DC Sodium Chloride (Iv Sodium Chloride 0.9% 1000ml Bag) 1,000 ml @ 125 mls/hr Q8H IV Last administered on 06/13/16 05:19; Start 06/12/16 at 15:05; Stop 06/13/16 at 08:34; Status DC Insulin Aspart (Novolog) 0-7 UNITS TIDWMEALS SQ Last administered on 06/16/16 12:34; Start 06/13/16 at 08:00 Dextrose 12.5 gm 12.5 gm PRN Q15MIN PRN IV SEE COMMENTS; Start 06/12/16 at 19:00 Ceftriaxone Sodium 1 gm/ Sodium Chloride 50 ml @ 100 mls/hr Q24H IV Last administered on 06/13/16 16:14; Start 06/13/16 at 16:00; Stop 06/13/16 at 21:22; Status DC Sodium Chloride (Iv Sodium Chloride 0.9% 1000ml Bag) 1,000 ml @ 100 mls/hr Q10H IV ; Start 06/13/16 at 08:31; Stop 06/13/16 at 08:37; Status DC Potassium Chloride (Klor-Con) 10 meq BID94 PO Last administered on 06/16/16 08 :42; Start 06/13/16 at 09:00 Acetaminophen (Tylenol) 1,000 mg PRN Q6HRS PRN PO MILD PAIN / TEMP Last administered on 06/16/16 05:41; Start 06/13/16 at 08:45 Venlafaxine HCl 50 mg 50 mg TID PO Last administered on 06/16/16 14:34; Start 06/13/16 at 10:00 Sodium Chloride 1,000 ml @ 100 mls/hr Q10H IV Last administered on 06/13/16 14 :20; Start 06/13/16 at 13:00; Stop 06/13/16 at 22:00; Status DC Levofloxacin/ Dextrose 100 ml @ 100 mls/hr 1X ONCE IV ; Start 06/13/16 at 21:15 ; Stop 06/13/16 at 21:22; Status DC Meropenem/Sodium Chloride (Merrem/Iv Sodium Chloride 0.9% 50ml) 50 ml @ 100 mls /hr Q6HRS IV Last administered on 06/16/16 12:28; Start 06/13/16 at 22:00; Stop 06/16/16 at 15:18; Status DC Venlafaxine HCl (Effexor Xr) 150 mg DAILY PO ; Start 06/14/16 at 09:00; Stop 06/14 at 09:00; Status DC Lisinopril (Prinivil) 40 mg DAILY PO Last administered on 06/16/16 08:42; Start 06/14/16 at 09:00 Glipizide (Glucotrol Er) 10 mg DAILY08 PO Last administered on 06/16/16 08:41 ; Start 06/14/16 at 08:00 Pioglitazone HCl (Actos) 15 mg DAILY PO Last administered on 06/16/16 08:42; Start 06/14/16 at 09:00 Metformin HCl (Glucophage) 1,000 mg BIDWMEALS PO Last administered on 08:42; Start 06/15/16 at 09:15 Albuterol Sulfate (Ventolin Neb Soln) 2.5 mg RTQID NEB Last administered on 15:09; Start 06/16/16 at 16:00 Ciprofloxacin (Cipro) 500 mg BID PO ; Start 06/16/16 at 21:00 Active Scripts Active Venlafaxine Hcl Er (Venlafaxine Hcl) 150 Mg Tab.er.24 1 Tab PO DAILY Pioglitazone Hcl 15 Mg Tablet 1 Mg PO DAILY 30 Days Metformin Hcl 1,000 Mg Tablet 1 Tab PO BID Lisinopril 40 Mg Tablet 1 Tab PO DAILY Hydrochlorothiazide Tablet (Hydrochlorothiazide) 25 Mg Tablet 1 Tab PO DAILY Glipizide Er (Glipizide) 10 Mg Tab.er.24 1 Tab PO DAILY Atorvastatin Calcium 20 Mg Tablet 1 Tab PO DAILY Allopurinol 300 Mg Tablet 1 Tab PO DAILY Vitals/I & O Vital Sign - Last 24 Hours 06/15/16 06/15/16 06/16/16 06/16/16 19:00 23:00 03:00 08:00 Temp 101.4 99.5 99.7 101.4 99.5 99.7 Pulse 96 84 85 Resp 20 20 20 B/P 149/99 133/86 146/91 Pulse Ox 97 94 97 O2 Delivery Room Air Nasal Cannula Nasal Cannula Room Air O2 Flow Rate 2.0 2.0 06/16/16 06/16/16 06/16/16 06/16/16 08:10 08:42 11:00 15:11 Temp 98.9 98.4 98.9 98.4 Pulse 89 89 95 Resp 20 20 B/P 129/94 129/94 132/88 Pulse Ox 93 95 95 O2 Delivery Room Air Room Air Room Air Intake and Output 06/15/16 06/15/16 06/16/16 15:00 23:00 07:00 Intake Total 480 ml 1660 ml 800 ml Output Total 400 ml Balance 480 ml 1260 ml 800 ml Tia BEST MD Jun 16, 2016 16:04
[2016-06-16] MEDS ORDERED: IOHEXOL 300 MG/ML 75 ML VIAL IV ONE (16:30)
[2016-06-16] MEDS ORDERED: CONTRAST GIVEN MC PRN (16:45)
--- NOTE | 2016-06-16 17:44 | RAD ---
PROCEDURE CT study of the abdomen and pelvis with contrast HISTORY Urinary tract infection with sepsis. History of diabetes. TECHNIQUE After IV infusion of 60 cc of Omnipaque 300, helical CT scanning of the abdomen and pelvis was performed. No GI contrast was administered. This may decrease the sensitivity to detect GI tract pathology. One or more of the following individualized dose reduction techniques were utilized for this study: 1. Automated exposure control 2. Adjustment of the mA and/or kV according to patient size 3. Use of iterative reconstruction technique COMPARISON None available. FINDINGS The liver and spleen and pancreas are normal. The gallbladder is small in size. No biliary ductal dilatation is seen. No adrenal mass is seen. There is loss of the perisinus fat of the right kidney and comparison to the left side. This may be seen with pyelonephritis. There is mild perinephric stranding as well. The upper left urinary tract is normal. Urinary bladder wall is smooth. No adrenal mass is seen. No focal aneurysmal dilatation of the abdominal aorta is seen. No enlarged abdominal or pelvic lymphadenopathy is seen. No obstructive bowel pattern is evident. The appendix is normal. No free air or free fluid or mesenteric inflammatory change is seen. Small bilateral pleural effusions are seen. Mild adjacent compressive atelectasis is seen. No osteolytic process is evident. IMPRESSION Right-sided pyelonephritis. Electronically signed by: Wilber Rothman MD (Jun 16, 2016 17:43:34)
[2016-06-16 19:59] VITALS: BP 136/90
[2016-06-16] MEDS: CIPROFLOXACIN HCL 250 MG TABLET PO SCH (20:22)
[2016-06-16 23:57] VITALS: BP 124/94
[2016-06-17 03:28] VITALS: BP 130/89
[2016-06-17 05:11] LABS: BASO # 0.1 x10^3/uL (0.0-0.2); BASO % 1 % (0-3); EOS % 4 % (0-3); HEMOGLOBIN 13.4 g/dL (13.0-17.5); LYMPH # 1.6 x10^3/uL (1.0-4.8); LYMPH % 14 % (24-48); MEAN CORPUSCULAR HEMOGLOBIN 29 pg (25-35); MEAN CORPUSCULAR HGB CONC 33 g/dL (31-37); MEAN CORPUSCULAR VOLUME 90 fL (79-100); MONO % 18 % (0-9); NEUT % 63 % (31-73); PLATELET COUNT 188 x10^3/uL (140-400); RED BLOOD COUNT 4.55 x10^6/uL (4.30-5.70); RED CELL DISTRIBUTION WIDTH 13.9 % (11.5-14.5); WHITE BLOOD COUNT 11.5 x10^3/uL (4.0-11.0)
[2016-06-17 05:34] LABS: CALCIUM 9.2 mg/dL (8.5-10.1); CREATININE 1.2 mg/dL (0.7-1.3); GFR 64.9; POTASSIUM 3.7 mmol/L (3.5-5.1)
[2016-06-17 07:00] VITALS: BP 132/90
[2016-06-17] MEDS: ALBUTEROL SULFATE 2.5 MG/3 ML NEBU. NEB SCH ×2 (07:03→11:16)
[2016-06-17] MEDS: LISINOPRIL 40 MG TABLET. PO SCH (08:31)
[2016-06-17] MEDS: VENLAFAXINE 50 MG TABLET. PO SCH ×2 (08:31→14:04)
[2016-06-17] MEDS: PIOGLITAZONE 15 MG TABLET. PO SCH (08:31)
[2016-06-17] MEDS: GLIPIZIDE ER 5 MG TAB.ER.24 PO SCH (08:31)
[2016-06-17] MEDS: CIPROFLOXACIN HCL 250 MG TABLET PO SCH (08:32)
[2016-06-17] MEDS: POTASSIUM CHLORIDE 10 MEQ TABLET.ER. PO SCH (08:35)
[2016-06-17] MEDS: INSULIN ASPART 300 UNITS/3 ML INSULN.PEN SQ SCH ×2 (08:39→11:28)
[2016-06-17 11:00] VITALS: BP 139/92
[2016-06-17] MEDS ORDERED: CIPR250T30 PO (13:51)
[2016-06-17] MEDS ORDERED: PROAIR HFA8.5 GM INH (13:51)
[2016-06-17] MEDS ORDERED: ALOG1TAB4 PO (13:51)
[2016-06-17] MEDS ORDERED: TAMS0.4C2 PO (13:51)
--- NOTE | 2016-06-17 14:26 | PDOC ---
Provider Note Provider Note discharge dictated # [id number] Tia BEST MD Jun 17, 2016 14:26
[2016-06-17 15:00] VITALS: BP 131/89
--- NOTE | 2016-06-18 07:54 | DS ---
DATE OF DISCHARGE: ADMISSION DIAGNOSIS: Sepsis. DISCHARGE DIAGNOSIS: Escherichia coli sepsis with pyelonephritis. ASSOCIATED DIAGNOSES: Uncontrolled type 2 diabetes, urinary retention, asthma, hypertension, depression. CONSULTS: Infectious Disease. HISTORY AND HOSPITAL COURSE: A 45-year-old male presented with fever and had blood and urine cultures both positive for E. coli. Initial imaging did not show pyelonephritis, but the followup imaging did. Post-void residual shows a 250 residual, so he has some urinary retention. He denies any prostate symptoms, but he has had some urinary frequency and has not been having retention issues over the past year or so. He has previously had his prostate check by Dr. Casarez, but does not recall any issues. He does not have a glucose monitor at home. He does not check his sugars. His initial white count was 22,000 and he had fevers of 102. Infectious Disease has taken him off his meropenem, placed him on oral Cipro and are good with him going home. We discussed the new findings of urinary retention and elevated post-void residual and his uncontrolled diabetes and need for monitoring. He states he will follow up to have those issues addressed. On exam, he developed some asthma symptoms while here with some wheezing, that improved with neb treatments. He has a history of some mild asthma that is intermittent and does not have an inhaler at home. He had not had any cardiac issues. He had not had any abdominal or upper GI issues. He has not had any diarrhea. He has not had any skin problems. He had not had any edema or musculoskeletal issues while here. Rest of his lab shows white count has come down to 11.5. His hemoglobin is stable. His lactic acid reached to a level to 2. His blood sugars are still in the 200 range. Flu testing was negative. Microbiology as mentioned above. Blood and urine cultures both with E. coli. CT abdomen and pelvis yesterday showed changes of pyelo with loss of perisinus fat of the right kidney compared to the left that may be seen with pyelo. There is some mild perinephric stranding as well. The urinary tract otherwise appeared normal. The prostate itself was not mentioned on the study, though. Chest x-ray was clear. Initial ultrasound showed normal-appearing kidneys without hydronephrosis and the bladder also appeared normal. He will be discharged home with Cipro 500 mg b.i.d., #14; tamsulosin 0.4 mg 1 daily, #35 refills. His pioglitazone is stopped and will start Oseni 25/15 one daily for better glucose control, albuterol/ProAir inhaler 2 puffs q. 6 hours p.r.n. #1. We will continue allopurinol 300 mg, atorvastatin 20 mg, glipizide 10 mg daily, HCTZ 1 daily, lisinopril 40 daily, metformin 1000 b.i.d. and venlafaxine 150 mg daily. He will follow up with Dr. Casarez in the office within a week or two. He needs a glucose monitor and test strips, better diet control. He is released to return to work tomorrow, though. He will call if any fever, nausea, vomiting or urinary difficulties developed. W Nellie BEST MD DR: GAVIN/amrik JOB#: [id number] / [id number]
== END 2016-06-17 15:10 | disposition home or self-care (01) | DRG 872 ==
LOC: ER 12:05 → 5 SOUTH 15:03 → OBSVTOIN 06-13 08:44
PROVIDERS: ADMIT Family Medicine; ATTEND Family Medicine
DX: A41.51 Sepsis due to Escherichia coli [E. coli] (principal); J45.21 Mild intermittent asthma with (acute) exacerbation; N12 Tubulo-interstitial nephritis, not specified as acute or chronic; N17.9 Acute kidney failure, unspecified; E11.65 Type 2 diabetes mellitus with hyperglycemia; E78.00 Pure hypercholesterolemia, unspecified; E78.5 Hyperlipidemia, unspecified; F32.9 Major depressive disorder, single episode, unspecified; I10 Essential (primary) hypertension; M10.9 Gout, unspecified; F41.8 Other specified anxiety disorders; I95.9 Hypotension, unspecified; R55 Syncope and collapse; E87.6 Hypokalemia; Z79.4 Long term (current) use of insulin
CPT/HCPCS: 36415; 71010; 74177; 76770; 80048; 80053; 80076; 81001; 82947; 83605; 83690; 83880; 84484; 85007; 85027; 87040; 87086; 87186; 87205; 87804; 93005; 94640; G0378; G0379; J0690; J0696; J1815; J2185; J7030; Q9967